=== PATIENT | female | born 1955 | race Two or more races ===

== ENCOUNTER 2024-06-25 13:07 | Emergency (ER) | payer MEDICARE, MEDICAID, SELFPAY ==
--- NOTE | ~2024-06-25 | XR_ITS ---
EXAMINATION: XR CHEST CLINICAL INFORMATION: cough x 5 days COMPARISON: None available. TECHNIQUE: 2 views of the chest were obtained. FINDINGS: Pulmonary reticular pattern. Low lung volume. Prominence of the interstitial markings in the right middle lung lobe. No pneumothorax. No pleural effusion. Cardiomediastinal silhouette is normal. Multilevel thoracic and upper lumbar spondylosis. S-shaped curvature of the thoracal lumbar spine. Osteopenia versus osteoporosis. Degenerative changes knee, clavicular joints. XR/XR chest 2V IMPRESSION: Consider an acute small airway inflammatory versus infectious disease. Electronically signed by: Geronimo Ceballos MD 06/25/2024 02:22 PM [facility]
[2024-06-25 13:57] VITALS: BP 145/70; PULSE 80; RESP 18; TEMP 36.9; O2SAT 98; BMI 29.0
--- NOTE | 2024-06-25 13:57 | ED_ITS ---
HPI - General Adult General Chief complaint: Upper Respiratory Symptoms Stated complaint: asthma Time Seen by Provider: 06/25/24 16:56 Source: patient, RN notes reviewed and old records reviewed Mode of arrival: ambulatory Limitations: no limitations History of Present Illness ED Provider: Diego [facility] narrative: Patient is a 69-year-old female with history of asthma presenting with complaint of cough since Saturday. Using inhaler without relief. Denies chest pain or palpitations. Cough nonproductive. MD complaint: cough Onset (ago): day(s) Treatments prior to arrival: none Related Data Previous Rx's ?Medication ?Instructions ?Recorded benzonatate 100 mg capsule 100 mg PO TID PRN cough #14 caps 06/25/24 prednisone 20 mg tablet 40 mg (2 x 20 mg) PO DAILY #10 tabs 06/25/24 Allergies Allergy/AdvReac Type Severity Reaction Status Date / Time aspirin [ASA] Allergy Unknown Verified 06/25/24 14:00 Review of Systems Review of Systems: As per HPI Yes all other systems are reviewed and are negative Constitutional: Constitutional: Reports as per HPI Physical Exam ED Vital Signs: Vital Signs - 24 hr 06/25/24 13:57 06/25/24 17:00 Temperature 98.4 F 98.4 F Pulse Rate 80 80 Respiratory Rate 18 18 Blood Pressure 145/70 H 145/70 H Pulse Oximetry 98 98 Oxygen Delivery Method Room Air Room Air BMI result Body Mass Index 29.0 Vital signs have been reviewed and appear to be correct. Blood pressure mildly elevated. Heart rate normal. Respiratory rate normal. Temperature normal. Oxygen saturation normal. Const General: cooperative, healthy appearing and no acute distress Orientation/consciousness: oriented to person, oriented to place, oriented to time and patient oriented x3 Limitations: no limitations HENMT Head: Yes normocephalic and Yes atraumatic Ears: external ears normal General nose exam: Normal external nose present Face and sinus: Yes face symmetric Mouth: oropharynx normal and moist mucous membranes Throat: Yes uvula midline Eyes Pupils: Equal, round and reactive pupils present Neck Neck: Yes normal visual inspection and Yes supple Resp Effort & Inspection: normal respiratory effort, able to speak in complete sentences and Actively coughing Quality: dry Auscultation: clear to auscultation bilaterally Cardio Rate: regular rate Rhythm: regular rhythm Heart sounds: S1 normal heart sound present and S2 normal heart sound present GI Palpation (GI): Soft to palpation and nontender Auscultation: normoactive bowel sounds General: Yes no CVA tenderness Back/Spine/Pelvis Back: no CVA tenderness Skin General skin exam: elasticity normal and turgor normal Neuro General: oriented to person, oriented to place, oriented to time, patient oriented x3, moves all extremities, no focal motor deficits and CN's II-XI intact bilaterally Cranial nerves: Yes Equal, round and reactive pupils present Cognition (Neuro): normal cognition Extrem General: Yes full ROM, Yes no pedal edema and Yes no calf tenderness Psych Mental Status: mental status grossly normal Affect: normal affect Thought process: Normal thought process present Course Course Course Narrative: This is a rapid medical exam performed by Deb Cortez NP: Additional HPI, ROS, PE not included below will be deferred to primary provider. Patient is a 69-year-old female with history of asthma presenting with complaint of cough since Saturday. Using inhaler without relief. Plan: viral serology, cxr Medical Decision Making Medical Decision Making [facility] Narrative: Patient is a 69-year-old female with history of asthma presenting with complaint of cough since Saturday. On exam patient is awake, A+Ox3, VS WNL, afebrile, normal neurological exam without focal deficits, physical exam findings as above. Given reported symptoms and physical exam findings, initial differential includes but is not limited to viral illness, covid, flu, rsv, asthma exacerbation. Viral serology positive for influenza. Patient updated on results and all questions answered. Discussed with patient that as this is a v iral illness, symptoms will resolve on their own with time. Advised her to ensure adequate rest, adequate fluid intake, Tylenol and ibuprofen as needed for fever or discomfort. Will send prescription for benzonatate for cough. Follow up with PCP. Return precautions discussed. Patient verbalized understanding of and agreement with plan. Differential Diagnosis Differential Diagnoses: The differential diagnosis associated with the presentation includes as per [facility] Lab Data [facility] Lab Attestation statement: I reviewed the patient's lab results. as per [facility] Labs: Lab Results 06/25/24 Range/Units 14:50 Influenza Type A (PCR) POSITIVE A (Negative) Influenza Type B (PCR) NEGATIVE (Negative) RSV RNA Qual (PCR) NEGATIVE (Negative) SARS-CoV-2 RNA (RT-PCR) NEGATIVE (Negative) External Record Review External record reviewed: Inpatient record, Office record and Outpatient record Prescription Management I considered prescription management with: Other Discharge Plan Discharge Clinical Impression: Influenza Patient Disposition: Home, Self-Care Instructions: Influenza (DC), Flu Shot (Vaccine) for Adults (ED) Additional Instructions: You were evaluated in the emergency department today for sore throat, congestion and diarrhea. Your flu test was positive. Your chest x-ray did not show evidence of pneumonia. You should isolate at home for another day and continue to wear mask or symptomatic after that. Your symptoms should resolve over time with rest and fluids. You can take 650 mg Tylenol or 600 mg ibuprofen every 6 hours as needed for fever or pain. Please follow-up with your primary care provider for any ongoing symptoms. Return to the emergency department if you develop worsening pain, fever not controlled with Tylenol and ibuprofen, chest pain, dizziness or lightheadedness, or any other concerning symptoms. Prescriptions: New benzonatate 100 mg capsule 100 mg PO TID PRN (Reason: cough) Qty: 14 0RF prednisone 20 mg tablet 40 mg PO DAILY Qty: 10 0RF Stand Alone Forms: Work/School Release Interventions: ED Discharge Assessment Last Done: 06/25/24 17:00 Discharge Date/Time: 06/25/24 17:02 Print Language: Swedish
[2024-06-25 15:38] LABS: Influenza A PCR POSITIVE (Negative); Influenza B PCR NEGATIVE (Negative); Resp Syncy Virus RNA Qual PCR NEGATIVE (Negative); SARS COV2 PCR INHOUSE NEGATIVE (Negative)
[2024-06-25 17:00] VITALS: BP 145/70; PULSE 80; RESP 18; TEMP 36.9; O2SAT 98
== END 2024-06-25 17:02 | disposition home or self-care (01) ==
PROVIDERS: Registered Nurse Emergency; Emergency Provider Emergency Medicine; PCP Family Medicine
DX: J10.1 Influenza due to other identified influenza virus with other respiratory manifestations (principal); R05.9 Cough, unspecified; Z03.818 Encounter for observation for suspected exposure to other biological agents ruled out
CPT/HCPCS: 0241U; 71046; 99282; 99283

== ENCOUNTER → 2024-06-25 14:01 | Outpatient (BNV) | payer MEDICARE, MEDICAID, SELFPAY | PROVIDERS: PCP Family Medicine; Visit Provider Radiology Diagnostic Radiology | DX: J68.9 Unspecified respiratory condition due to chemicals, gases, fumes and vapors (principal) | CPT/HCPCS: 71046 ==

== ENCOUNTER 2024-12-16 09:51 | Outpatient (REF) | payer MEDICARE, MEDICAID, SELFPAY ==
--- NOTE | ~2024-12-16 | XR_ITS ---
EXAMINATION: XR CHEST CLINICAL INFORMATION: cough, wheezing COMPARISON: June 25, 2024 TECHNIQUE: 2 views of the chest were obtained. FINDINGS: No significant abnormality is noted involving the heart, lungs, mediastinum, bony thorax or soft tissues. XR/XR chest 2V IMPRESSION: Unremarkable examination. Electronically signed by: Se Blue MD 12/16/2024 04:08 PM EDT
--- OUTSIDE RECORDS SUMMARY | 2024-12-16 10:15 | XMS_ITS | Clinical Summary ---
Author Organization [facility] Address [address] [place] [address] Care Team Providers Care Device Processing Engineer Name Role Phone Ginette Hills MD Primary Care Provider [phone] Source Comments PLEASE NOTE, if this patient is a minor, it may be UNLAWFUL to discuss sensitive information that is contained in these records (such as FAMILY PLANNING, MENTAL HEALTH or SUBSTANCE ABUSE) with the minor patient's parent or other person without the patient's specific authorization.[facility] Allergies Active Allergy Reactions Criticality Noted Date Comments Aspirin 03/31/2021 Nsaids (Non-Steroidal Anti-I nflammatory Drug) Rash High 08/07/2019 Medications capsaicin 0.025 % creamIndications:N europathic pain Apply topically 3 (three) times daily To legs as needed for nerve pain 120 g 1 2 Active acetaminophen (TYLENOL) 500 mg tabletIndications: Chronic right shoulder pain Take 2 Tablets by mouth every 6 (six) hours as needed for pain 100 Tablet 2 2 Active sodium chloride (OCEAN) 0.65 % nasal sprayIndications:R hinorrhea Place 2 Sprays into the nostril(s) as needed for congestion 60 mL 2 Active conjugated estrogens (PREMARIN) 0.625 mg/gram vaginal creamIndications:R ecurrent UTI (urinary tract infection),Atrophi c vaginitis Place 1 g vaginally every 7 (seven) days 42.5 g 3 2 Active fluticasone (FLOVENT HFA) 220 mcg/actuation inhalerIndications :Mild intermittent asthma with exacerbation (HHS-HCC) Inhale 2 Puffs into the lungs 2 (two) times daily 12 g 2 Active inhalational spacing device Use with inhaler 2 Each 1 2 Active fluticasone (FLONASE) 50 mcg/actuation nasal spray Place 2 Sprays in both nostrils once daily 16 g 1 2 Active diclofenac sodium (VOLTAREN) 1 % gelIndications:Chr onic right shoulder pain Apply topically 2 (two) times daily On hands and other painful joints 100 g 3 3 Active meclizine (ANTIVERT) 25 mg tabletIndications: Balance problem Take 1 Tablet by mouth 3 (three) times daily as needed for dizziness 40 Tablet 1 3 Active estradioL (ESTRACE) 0.01 % (0.1 mg/gram) vaginal creamIndications:R ecurrent UTI,Atrophic urethritis Place 2 g vaginally nightly at bedtime Decrease to twice weekly once symptoms improve 42.5 g 3 3 Active loratadine (CLARITIN) 10 mg tabletIndications: Mild persistent asthma without complication ([facility]) Take 1 Tablet by mouth once daily as needed for allergies 90 Tablet 3 4 Active albuterol HFA 90 mcg/actuation inhalerIndications :Mild persistent asthma without complication (HHS-HCC) Inhale 2 Puffs into the lungs every 4 (four) hours as needed for shortness of breath or wheezing 18 g 4 Active mometasone-formote rol (DULERA) 200-5 mcg/actuation inhalerIndications :Mild persistent asthma without complication (HHS-HCC) Inhale 2 Puffs into the lungs 2 (two) times daily 13 g 2 4 Active montelukast (SINGULAIR) 10 mg tabletIndications: Mild persistent asthma without complication (HHS-HCC) Take 1 Tablet by mouth nightly at bedtime 90 Tablet 1 4 Active ergocalciferol (VITAMIN D-2) 1,250 mcg (50,000 unit) capsuleIndications :Vitamin D deficiency Take 1 Capsule by mouth once a week for 90 days 12 Capsule 4 Active rosuvastatin (CRESTOR) 40 mg tabletIndications: Hyperlipidemia, unspecified hyperlipidemia type Take 1 Tablet by mouth once daily 90 Tablet 3 4 Active calcium citrate-vitamin D3 500 mg-12.5 mcg (500 unit) chewIndications:Ag e-related osteoporosis without current pathological fracture Chew and swallow 1 Tablet by mouth daily. 90 Tablet 3 4 Active Active Problems Problem Noted Date Diagnosed Date Age-related osteoporosis wit hout current pathological fracture 10/16/2023 Chronic right shoulder pain 05/16/2020 COVID-19 virus infection 11/03/2019 Overview (11/13/2019): Sx started 10/27 Tested + ER 11/01 Admitted--> d/c 10/31 O2 requirement--> weaned. Not intubated +remsidivir, + CAN-COVID study, possible biologic +abl imaging dx covid PNA +elevated inflamm markers Needs retesting for clearance Last Assessment & Plan: Graduated today from our f/u team because followed at [facility]. Has appt tomorrow with pcp Doing well, Her little rozina is staying with daughter until she is better. She is improving. I think she does meet criteria for ending isolation so will send to retesting pool [facility] has not called her yet. Discussed that they are supposed to , and to answer phone if sees they are calling. Gave her number of [facility] to call. She is anxious that she is not 100% yet and we discussed that does not have to be , to be off of isolation However does need retesting for clearance so sent to [facility] as above. Education/counselin) Reviewed with patient that if they experience any of the following, they should call 911 for immediate evaluation and inform them of their COVID positive or suspected test results: ? Worsening shortness of breath, difficulty breathing ? Persistent Chest pressure or pain ? New confusion or inability to wake-up ? Bluish or gonzalez lips or face, particularly bluish gums 2) Reviewed with patient that they are to remain in isolation from the community until they are contacted by [facility] and are cleared from isolation by [facility]. The criteria that [facility] will use is 10 days since symptom onset AND they have had 3 days without fever (without use of antipyretics) and 3 days of improving respiratory symptoms only* * Unless they meet retesting criteria, in which case they will need two negative retests >24 hours apart. Although [facility] is the only entity that can clear into community, we are able to provide clearance for work when they meet the above criteria. If they require work note for clearance, they can call their PCP office, our call our COVID follow-up team line at [phone] (7 days a week, 9AM-4PM). Their family members will also need to remain in quarantine until: - (If do not develop symptoms) at least 14 days after the COVID+ patient meets the following criteria (7 days after onset of symptoms and 72h after resolution of fever and any respiratory symptoms) - If they develop symptoms, at least 10 days after onset of symptoms and 72h after resolution of fever and improving respiratory symptoms If they have questions about other medical issues OR are calling after hours, directed patient to call their PCP. Food insecurity 08/21/2019 History of vaginal hysterectomy 03/11/2019 Overview (03/11/2019): 2016 due to prolapse Prediabetes 07/26/2017 Myalgia 11/23/2016 Female genital prolapse 10/18/2016 Decreased vision 09/09/2016 BMI 30.0-30.9,adult 09/09/2016 Vitamin D deficiency 09/09/2016 Hyperlipidemia 09/09/2016 Mild persistent asthma without complication ([facility]) 09/09/2016 Assessment & Plan (08/21/2019 5:56 PM EST): Recent asthma exacerbation - seen by PCP 08/07/2019. Given Prednisone taper - but patient taking 10mg daily. Also escalated controller inhaler. Patient seems to have post-nasal drip and cough not in respiratory distress and no wheezing on exam. -- reviewed nasal saline use -- can consider flonase if sx persisting -- continue controller and reviewed use of albuterol rescue -- no indication for additional systemic steroids -- reviewed return precautions Varicose veins of both lower extremities with pa in 09/09/2016 Routine health maintenance 09/09/2016 Asthma ([facility]) 07/20/2010 Overview (11/20/2019): Overview: Asthma Overview: Overview: Asthma Overview: Asthma Allergic rhinitis 11/07/2001 Overview (11/20/2019): Overview: Allergic rhinitis Overview: Overview: Allergic rhinitis Resolved Problems Problem Noted Date Diagnosed Date Resolved Date Nonhealing skin ulcer, limit ed to breakdown of skin ([facility]) 09/09/2016 09/20/2020 Immunizations Immunization Administration Dates Next Due Flu, Multi Dose 0.5 ML 03/31/2021,2019,03/25/2018,02/16,03/14/2015 Flu, Preservative Free 03/19/2023,05/24/2022, INFLUENZA, SEASONAL, INJECTABLE 04/04/20 14,09/04/2009,03/18/2009,12/2004 INFLUENZA, UNSPECIFIED 03/07/2010,03/18/2009,12/2004 MODERNA COVID-19 VACCINE BIV ALENT, BLUE CAP, 6M+ 05/24/2022 Moderna COVID-19 Vaccine, re d cap blue label, 12+ Primary Series 01/08/2022,05/08/2021,10/18/2020,11/202010/18/2020 PNEUMOCOCCAL POLYSACCHARIDE PPV23 (Pneumovax 23) 07/26/2017 TDAP 07/26/2017,12/01/2012 Td (adult) unspecified 03/06/2005 Td(adult),2 Lf tetanus toxoid,preservative free 03/06/2005 ZOSTER VACCINE, RECOMBINANT (SHINGRIX) 01/09/2021,08/21/2019 Family History Medical History Relation Name Comments Diabetes Brother Hypertension Brother Diabetes Maternal Uncle Diabetes Mother Hypertension Mother Other (See Comments) Mother vascual r disease Colon Cancer Other Cousin Diabetes Paternal Uncle Alcohol/Drug Abuse Son Relation Name Status Comments Brother Maternal Uncle Mother Other Paternal Uncle Son Social History Tobacco Use Types Packs/Day Years Used Date Smoking Tobacco: Never Smokeless Tobacco: Never Tobacco Cessation:Counseling Given: Not Answered Alcohol Use Standard Drinks/Week Comments No 0 (1 standard drink = 0.6 oz pur e alcohol) Social Connections Answer Date Recorded Connectedness 0 02/22/2024 Financial Resource Strain Answer Date R ecorded Financial Resource Strain 1 2023 Stress Answer Date Recorded Stress 0 02/08/2019 Physical Activity Answer Date Recorded Physical Activity 0 02/08/2019 Food Insecurity Answer Date Recorded Food 1 04/14/2024 Transportation Needs Answer Date Record ed Transportation 1 04/14/2024 Housing Stability Answer Date Recorded Housing 1 04/14/2024 Safety and Environment Answer Date Donta rded Safety 0 02/08/2019 Utilities Answer Date Recorded Utilities 2 04/14/2024 Employment Answer Date Recorded Stress 1 04/14/2024 Comments No Sex and Gender Information Value Date Recorded Sex Assigned at Female 11/23/2016 3:00 PM PDT Legal Sex Female 1:13 PM PST Gender Identity Female 11/23/2016 3:00 PM PDT Sexual Orientation Straight 01/01/2017 8: 12 AM PDT Last Filed Vital Signs Vital Sign Reading Time Taken Comments Blood Pressure 123/74 04/14/2024 10:20 AM EDT Pulse 77 04/14/2024 10:20 AM EDT Temperature 36.9 C (98.5 F) 04/14/2024 10:20 AM EDT Respiratory Rate 18 05/21/2023 2:22 PM EST Oxygen Saturation 98% 04/14/2024 10: 20 AM EDT Inhaled Oxygen Concentration - - Weight 78.8 kg (173 lb 12.8 oz) 024 10:20 AM EDT Height 158.1 cm (5' 2.24 ) 03/19/2023 3:52 PM ED T Body Mass Index 31.54 03/19/2023 3:52 PM EDT Plan of Treatment Health Maintenance Due Date Last Done Comments Tobacco Screening 1955 Medicare Annual Wellness Visit 1975 CT Colonography 2002 Flexible Sigmoidoscopy 2002 Colonoscopy 03/23/2021 03/23/2011 Colorectal Cancer Screening 09/21/2023 FIT/gFOBT 09/21/2023 09/20/2022, 0411/2022, 05/08/2021 [id number] ( season) 2024 05/24/2022, 01/08/2022, 05/08/2021, Additional history exists Diabetes Screening 03/21/2024 03/21/2023, 1 , 09/20/2020, Additional history exists Alcohol and Drug Screen 06/17/2024 04/14/20, 10/14/2023, 05/21/2023, Additional history exists Depression Annual Screen 06/17/2024 04/14/2024 Bone Density Screening 09/04/2024 09/05/2023, 2023 Lipid Screening 10/14/2024 10/15/2023, 10/2022, 03/21/2023, Additional history exists Imm-Influenza (#1) 2025 03/19/2023, 1 07/25/2021, 03/31/2021, Additional history exists Breast Cancer Screening (Mammogram) 02/24/2025 02/25/2024, 09/03/2022, 09/03/2022, Additional history exists Falls Prevention 04/14/2025 04/14/2024, 03/19/2023 Hypertension Screening (#1) 04/14/2025 Fecal DNA 09/20/2025 09/20/2022, 11/2022, 09/20/2022 Imm-DTaP/Tdap/Td (4 - Td or Tdap) 12/19/2033 12/20/2023, 07/26/2017, 12/01/2012, Additional history exists Hepatitis C Screening Completed 09/05/2016 Imm-Zoster, Recombinant Completed 01/09/2021, 08/20 Imm-Pneumococcal 50+ Completed 03/21/2023, 07/26/19 18 Procedures Procedure Name Priority Date/Time Associated Diagnosis Comments LIPIDS W RFLX TO DIRECT LDL Routine 10/15/2023 2:34 PM EDT Hypertriglyceridemi a COMPREHENSIVE METABOLIC PANEL Routine 03/21/2023 2:19 PM EDT Screening for metabolic disorder COLOGUARD Routine 09/20/2022 2:40 PM EDT Special screening for malignant neoplasms, colon HEPATITIS C AB W/RFLX HCV RNA, QT, RT PCR Routine 09/05/2016 4:34 PM EDT Screening examination for STD (sexually transmitted disease) from Last 3 Months or Most Recently Relevant to Health Maintenance Results * (ABNORMAL) LIPIDS W/RFLX DIRECT LDL ([id number]) (10/15/2023 2:34 PM EDT) CHOLESTEROL, TOTAL 158 <200 mg/dL 10/16/2023 4:16 AM EDT [facility] HDL CHOLESTEROL 63 > OR = 50 mg/dL 10/16/2023 4:16 AM EDT [facility] TRIGLYCERIDES 267(H) <150 mg/dL 10/16/2023 4:16 AM EDT [facility] LDL-CHOLESTEROL 64 mg/dL (calc) 10/16/2023 4:16 AM EDT [facility] CHOL/HDLC RATIO 2.5 <5.0 (calc) 10/16/2023 4:16 AM EDT [facility] NON-HDL CHOLESTEROL 95 <130 mg/dL (calc) 10/16/2023 4:16 AM EDT [facility] Blood Blood / Unknown 10/15/2023 2 :34 PM EDT 10/16/2023 2:36 AM EDT Narrative [facility] - 10/16/2023 4:56 AM EDT . If a non-fasting specimen was collected, consider repeat triglyceride testing on a fasting specimen if clinically indicated. Light et al. J. of Clin. Lipidol. 2015;9:129-169. . Reference range: <100 . Desirable range <100 mg/dL for primary prevention; <70 mg/dL for patients with CHD or diabetic patients with > or = 2 CHD risk factors. . LDL-C is now calculated using the Moshe-Thomas calculation, which is a validated novel method providing better accuracy than the Friedewald equation in the estimation of LDL-C. Moshe GRAY et al. BARBIE. 2013;310(19): 2671-3223 (http://education.[employer]/faq/KHL566) For patients with diabetes plus 1 major ASCVD risk factor, treating to a non-HDL-C goal of <100 mg/dL (LDL-C of <70 mg/dL) is considered a therapeutic option. us Ginette Hills MD LAB - BLOOD DRAW Final Result [facility] [address] [address], [facility] [address] [address] * CMP ([id number]) (03/21/2023 2:19 PM EDT) [facility] Signature GLUCOSE 86 65 - 99 mg/dL 03/22/2023 7:53 AM [facility] UREA NITROGEN (BUN) 18 7 - 25 mg/dL 03/22/2023 7:53 AM [facility] CREATININE (blood) 0.68 0.50 - 1.05 mg/dL 03/22/2023 7:53 AM [facility] EGFR 96 > OR = 60 mL/min/1. 73m2 03/22/2023 7:53 AM [facility] BUN/CREATININE RATIO SEE NOTE: 6 - 22 (calc) 03/22/2023 7:53 AM [facility] SODIUM 139 135 - 146 mmol/L 03/22/2023 7:53 AM [facility] POTASSIUM 4.5 3.5 - 5.3 mmol/L 03/22/2023 7:53 AM [facility] CHLORIDE 103 98 - 110 mmol/L 03/22/2023 7:53 AM [facility] CARBON DIOXIDE 28 20 - 32 mmol/L 03/22/2023 7:53 AM [facility] CALCIUM 9.1 8.6 - 10.4 mg/dL 03/22/2023 7:53 AM [facility] PROTEIN, TOTAL 6.8 6.1 - 8.1 g/dL 03/22/2023 7:53 AM [facility] ALBUMIN 4.3 3.6 - 5.1 g/dL 03/22/2023 7:53 AM [facility] GLOBULIN 2.5 1.9 - 3.7 g/dL (calc) 03/22/2023 7:53 AM [facility] ALBUMIN/GLOBULI N RATIO 1.7 1.0 - 2.5 (calc) 03/22/2023 7:53 AM [facility] BILIRUBIN, TOTAL 0.4 0.2 - 1.2 mg/dL 03/22/2023 7:53 AM [facility] ALKALINE PHOSPHATASE 79 37 - 153 U/L 03/22/2023 7:53 AM [facility] AST 18 10 - 35 U/L 03/22/2023 7:53 AM EDT [facility] ALT 14 6 - 29 U/L 03/22/2023 7:53 AM EDT [facility] Blood Blood / Unknown 03/21/2023 2 :19 PM EDT 03/22/2023 1:41 AM EDT Narrative [facility] - 03/22/2023 8:58 AM EDT . Fasting reference interval . Not Reported: BUN and Creatinine are within reference range. . us Ginette Hills MD LAB - BLOOD DRAW Final Result Performing Organization Address City/[facility]/ZIP Co de Phone Number [facility] [address] [address], [facility] [address] [address] * COLOGUARD (09/20/2022 2:40 PM EDT) Pathologist [facility] COLOGUARD DNA/OCCULT BLOOD SCREENING PRESENCE NEGATIVE Negative [facility] COL[facility]UARD DNA/OCCULT BLOOD SCREENING DESCRIPTIVE neg [employer] Stool Stool specimen / Unknown 09/20/2022 2:40 PM EDT us Ginette Hills MD LAB BODY FLUIDS AND STOOLS AMB ULATORY Final Result Performing Organization Address City/[facility]/ZIP Co de Phone Number [facility] [address] [facility] [id number] [place] [address], * HEPATITIS C AB W/RFLX HCV RNA, ([id number]) Recommended for screening (09/05/2016 4:34 PM EDT) Pathologist [facility] HEPATITIS C ANTIBODY NON-REACTI VE NON-REACT IRVING [facility] SIGNAL TO CUT-OFF 0.01 <1.00 [facility] Blood specimen (specimen) Blood / Unknown 09/05/2016 4:34 PM EDT 09/05/2016 4:35 PM EDT Narrative [facility] - 09/10/2016 12:21 PM EDT Performing Organization Information: [[id number]] : [facility], [address], [place] [address] Director: TOMI RIOJAS MD us Ginette Hills MD LAB - BLOOD DRAW Final Result [facility] [address] [address], [place] from Last 3 Months or Most Recently Relevant to Health Maintenance [place] Care Teams Device Processing Engineer Relationship Specialty Start Date End Date Ginette Hills MD [address] [place] [address] PCP - General Family Medicine, Physician 09/06/16
--- OUTSIDE RECORDS SUMMARY | 2024-12-16 10:15 | XMS_ITS | Encounter Summary ---
Author Organization [employer] [facility] Address [address] [place] [address] Care Team Providers Care Final Finisher Forging Dies Name Role Phone Rosetta Peralta MD Primary Care Provider [phone] Reason for Referral * Consultation (Routine) - Authorized Specialty Diagnoses / Procedures Referred By Mame nagel Referred To Contact Pharmacy Diagnoses Hypertension Cait Sunshine MD [address] [place] [address] Phone: tel: fax: Referral ID Status Reason Start Date Expiration Date Visits Requested Visits Authorized [id number] Authorized Continuity of Care 10/27/2024 10/27/2025 6 6 Encounter Details Date Type Department Care Team ([facility] st Contact Info) Description 10/26/2024 Orders Only [facility] [address] [place], [place] [phone] Cait Sunshine MD [address], [place] [phone] Hypertension (Primary Dx) Social History Tobacco Use Types Packs/Day Years Used Date Smoking Tobacco: Never Smokeless Tobacco: Never Alcohol Use Standard Drinks/Week Comments Never 0 (1 standard drink = 0.6 oz pur e alcohol) Alcohol Answer Date Recorded How often do you have a drink containing alcohol ? 0 07/01/2024 How many drinks containing a lcohol do you have on a typical day when you are drinking? 0 07/01/2024 How often do you have six or more drinks on one occasion? 0 07/01/2024 Depression Answer Date Recorded Patient Health Questionnaire-9 Score 4 06/30/2024 Patient Health Questionnaire-9 Score 4 06/30/2024 Last PHQ-9: Questionnaire Data Not on file 0 06/30/2024 Housing Stability Answer Date Recorded What is your housing situation today? I have reagan gaines 06/30/[address] you li ve. Do you have problems with any of the following? None of the above 06/30/2024 Food Insecurity Answer Date Recorded Within the past 12 months, y ou worried that your food would run out before you got money to buy more: Never True 06/30/2024 Within the past 12 months,th e food you bought just didn't last and you didn't have enough money to get more: Never True Transportation Answer Date Recorded In the past 12 months, has l ack of transportation kept you from medical appts, meetings, work or from getting things needed for daily living? No 06/30/2024 Intimate Partner Violence Answer Date R ecorded Within the last year, have y ou been afraid of your partner or ex-partner? 2 07/01/2024 Within the last year, have y ou been humiliated or emotionally abused in other ways by your partner or ex-partner? 2 Within the last year, have y ou been kicked, hit, slapped, or otherwise physically hurt by your partner or ex-partner? 2 07/01/2024 Within the last year, have y ou been raped or forced to have any kind of sexual activity by your partner or ex-partner? 2 07/01/2024 Utilities Answer Date Recorded In the past 12 months, has t he electric, gas, oil or water company threatened to shut off services in your home? No 06/30/2024 Depression Answer Date Recorded Patient Health Questionnaire-2 Score 1 06/30/2024 Internet Access Answer Date Recorded Internet Access Q1 Yes 06/30/2024 Internet Access Q2 Not on file 06/30/2024 Comments Unknown Sex and Gender Information Value Date Recorded Sex Assigned at Female 04/16/2022 10:28 AM EDT Legal Sex Female 10:28 AM EDT Gender Identity Female 05/21/2024 2:31 PM EST Sexual Orientation Don't know 06/29/2024 10 :14 AM EST documented as of this encounter Plan of Treatment Upcoming Encounters Date Type Department Care Team (Late st Contact Info) Description 01/08/2025 1:00 PM EDT Office Visit [facility] [address] [place] [address] Marline Aiyana, OD [address] [place] [address] 01/12/2025 1:00 PM EDT Medication Management [facility] [address] [place] [address] Jp Hernandez, IrinaD [address] [place] [address] 03/24/2025 1:00 PM EDT Office Visit [facility] [address] [place] [address] Sapphire Hernandez Scheduled Referrals Name Type Priority Associated Diagnoses Orde r Schedule Referral to Pharmacy MTM Outpatient Referral Routine Hypertension Ordered: 10/27/2024 documented as of this encounter Visit Diagnoses Diagnosis Hypertension- Primary Unspecified essential hypertension documented in this encounter Additional Health Concerns Assessment Noted Time PHQ-9 Depression Total Score: 4 06/30/19 25 10:09 AM EST documented as of this encounter Care Teams Final Finisher Forging Dies Relationship Specialty Start Date End Date Rosetta Peralta MD [address] [place] [phone] PCP - General Family Medicine 06/30/24 documented as of this encounter
== END 2024-12-16 09:52 | disposition home or self-care (01) ==
LOC: HO.HHCX 09:51
PROVIDERS: Visit Provider Emergency Medicine
DX: R05.9 Cough, unspecified (principal)
CPT/HCPCS: 71046

== ENCOUNTER → 2024-12-16 09:52 | Outpatient (BNV) | payer MEDICARE, MEDICAID, SELFPAY | PROVIDERS: Visit Provider Radiology Diagnostic Radiology | DX: R05.9 Cough, unspecified (principal) | CPT/HCPCS: 71046 ==

== ENCOUNTER 2025-01-07 08:05 | Outpatient (REF) | payer MEDICARE, MEDICAID, SELFPAY ==
--- NOTE | ~2025-01-07 | US_ITS ---
EXAMINATION: US LOWER EXTREMITY VENOUS (REFLUX EXAM), BILATERAL CLINICAL INFORMATION: Edema. Status post vena seal versus ablation. COMPARISON: None. TECHNIQUE: Color flow triplex imaging and compression Doppler was performed to evaluate both the deep and the superficial systems bilaterally. To evaluate the superficial system, the examination was performed in the upright position. Color-flow Doppler ultrasound and compression ultrasound were utilized. In addition, maneuvers were utilized to demonstrate reflux. FINDINGS: 1. DEEP VENOUS ULTRASOUND OF THE RIGHT LOWER EXTREMITY: Common Femoral Vein: Compressible, normal respiratory variation and augmented flow. Femoral Vein: Compressible, normal color flow and augmentation. Popliteal Vein: Compressible, normal augmentation. Deep Reflux: There is a 2492 ms reflux in the popliteal vein. There is no evidence of a Jha's cyst. 2. SUPERFICIAL ULTRASOUND WITH DOPPLER OF RIGHT LOWER EXTREMITY: GREAT SAPHENOUS VEIN: Saphenofemoral Junction: 0.6 cm; Reflux: 2440 ms Proximal Thigh: 0.5 cm; Reflux: 2168 ms Mid Thigh: Not seen. Distal Thigh: Not seen. At Knee: 0.3 cm; Reflux: 2336 ms Proximal Calf: 0.4 cm; Reflux: 0 ms Mid Calf: 0.3 cm; Reflux: 0 ms Distal Calf: 0.4 cm; Reflux: 0 ms DUPLICATED MEDIAL GREAT SAPHENOUS VEIN: Diameter: None imaged Reflux: NA DUPLICATED LATERAL GREAT SAPHENOUS VEIN: Diameter: 0.4 cm. Reflux: 2052 ms and 2208 ms at the junction and mid thigh, respectively. SMALL SAPHENOUS VEIN: Saphenopopliteal Junction: 1.1 cm; Reflux: 2608 ms Proximal: 0.5 cm; Reflux: 1244 ms Distal: 0.7 cm; Reflux: 2364 ms VEIN OF GIACOMINI: Size: NA Reflux: NA PERFORATORS: Location: Small saphenous vein mid segment. At the knee and proximal calf. Size: 0.2-0.5 cm. Reflux: 2284 ms at the knee. VARICOSITIES: Location: Small saphenous vein from the proximal to distal segments. Size: 0.4-0.7 cm. Reflux: 904 ms-2640 ms. 3. DEEP VENOUS ULTRASOUND OF THE LEFT LOWER EXTREMITY: Common Femoral Vein: Compressible, normal respiratory variation and augmented flow. Femoral Vein: Compressible, normal color flow and augmentation. Popliteal Vein: Compressible, normal augmentation. Deep Reflux: There is 1400 ms reflux in the femoral vein and 2036 ms reflux in the popliteal vein. There is no evidence of a Jha's cyst. 4. SUPERFICIAL ULTRASOUND WITH DOPPLER OF LEFT LOWER EXTREMITY: GREAT SAPHENOUS VEIN: Saphenofemoral Junction: 0.7 cm; Reflux: 0 ms Proximal Thigh: 0.3 cm; Reflux: 0 ms Mid Thigh: Not seen. Distal Thigh: Not seen. At Knee: 0.4 cm; Reflux: 2408 ms Proximal Calf: 0.4 cm; Reflux: 2700 ms Mid Calf: 0.4 cm; Reflux: 0 ms Distal Calf: 0.5 cm; Reflux: 2668 ms DUPLICATED MEDIAL GREAT SAPHENOUS VEIN: Diameter: None imaged Reflux: NA DUPLICATED LATERAL GREAT SAPHENOUS VEIN: Diameter: 0.2-0.3 cm. Reflux: NA SMALL SAPHENOUS VEIN: Saphenopopliteal Junction: 0.3 cm; Reflux: 0 ms Proximal: 0.4 cm; Reflux: 0 ms Distal: 0.3 cm; Reflux: 0 ms VEIN OF GIACOMINI: Size: NA Reflux: NA PERFORATORS: Location: Small saphenous vein proximal segment. At the knee, proximal and mid calf. Size: 0.1-0.3 cm. Reflux: NA VARICOSITIES: Location: Small saphenous vein proximal segment. At the knee and distal calf. Size: 0.3-0.4 cm. Reflux: 2104 ms-2632 ms. US/US venous insuf bilat IMPRESSION: Right: Venous insufficiency, great saphenous vein from the junction to the knee. Venous insufficiency accessory lateral saphenous vein at the junction and mid thigh. Venous insufficiency, small saphenous vein from the junction to the distal calf. Deep venous reflux, popliteal vein. Multiple varices with reflux throughout the small saphenous vein. Perforators with reflux at the knee. Left: Venous insufficiency, great saphenous vein from the knee to the ankle. Venous insufficiency, small saphenous vein at the distal calf. Deep venous reflux, femoral vein and popliteal vein. Multiple varices with reflux and the proximal segment small saphenous vein and from the mid to distal calf. Electronically signed by: Geronimo Ceballos MD 01/07/2025 10:05 AM EDT
--- OUTSIDE RECORDS SUMMARY | 2025-01-07 08:08 | XMS_ITS | Encounter Summary ---
Author Organization [facility] Address [address] [place] [address] Care Team Providers Care Photo Finish Photographer Name Role Phone Rosetta Peralta MD Primary Care Provider Reason for Referral * Consultation (Routine) - Authorized Specialty Diagnoses / Procedures Referred By Mame nagel Referred To Contact Pharmacy Diagnoses Hypertension Cait Sunshine MD [address] [place] [address] Phone: tel: fax: Referral ID Status Reason Start Date Expiration Date Visits Requested Visits Authorized [id number] Authorized Continuity of Care 10/27/2024 10/27/2025 6 6 Encounter Details Date Type Department Care Team ([facility] st Contact Info) Description 10/26/[address] [facility] MEDICINE [address] [place], [place] [phone] Cait Sunshine MD [address] [place], [place] [phone] Hypertension (Primary Dx) Social History Tobacco Use [...] Description 01/08/2025 1:00 PM EDT Office Visit [facility] OPTOMETRY [address] [place] [address] Marline Aiyana, OD [address] [place] [address] 01/12/2025 1:00 PM EDT Medication Management [facility] MEDICINE [address] [place] [address] Jp Hernandez, IrinaD [address] [place] [address] 03/24/2025 1:00 PM EDT Office Visit [facility] ADULT DENTAL [address] [place] [address] Sapphire Hernandez Scheduled Referrals Name Type Priority Associated Diagnoses Orde r Schedule Referral to Pharmacy MTM Outpatient Referral Routine Hypertension Ordered: 10/27/2024 documented as of this encounter Visit Diagnoses Diagnosis Hypertension- Primary Unspecified essential hypertension documented in this encounter Additional Health Concerns Assessment Noted Time PHQ-9 Depression Total Score: 4 06/30/19 25 10:09 AM EST documented as of this encounter Care Teams Photo Finish Photographer Relationship Specialty Start Date End Date Rosetta Peralta MD [address] [place] [id number] PCP - General Family Medicine 06/30/24 documented as of this encounter
--- OUTSIDE RECORDS SUMMARY | 2025-01-07 08:08 | XMS_ITS | Clinical Summary ---
Author Organization [facility] Address [address] [place] [address] Care Team Providers Care Breastfeeding Peer Counselor Name Role Phone Ginette Hills MD Primary Care Provider Source Comments PLEASE NOTE, if this patient [...] mg tabletIndications: Mild persistent asthma without complication ([facility]) Take 1 Tablet by mouth once [...] from our f/u team because followed at [facility]. Has appt tomorrow with pcp Doing well, Her little rozina is staying with daughter until she is better. She is improving. I think she does meet criteria for ending isolation so will send to retesting pool [facility] has not called her yet. Discussed that they are supposed to , and to answer phone if sees they are calling. Gave her number of [facility] to call. She is anxious that she is not 100% yet and we discussed that does not have to be , to be off of isolation However does need retesting for clearance so sent to [facility] as above. Education/counselin) Reviewed with patient that [...] the community until they are contacted by [facility] and are cleared from isolation by [facility]. The criteria that [facility] will use is 10 days since symptom onset AND they have had 3 days without fever (without use of antipyretics) and 3 days of improving respiratory symptoms only* * Unless they meet retesting criteria, in which case they will need two negative retests >24 hours apart. Although [facility] is the only entity that can clear into community, we are able to provide clearance for work when they meet the above criteria. If they require work note for clearance, they can call their PCP office, our call our COVID follow-up team line at [phone] (7 days a week, 9AM-4PM). Their family [...] Hyperlipidemia 09/09/2016 Mild persistent asthma without complication ([facility]) 09/09/2016 Assessment & Plan (08/21/2019 5:56 PM [...] in 09/09/2016 Routine health maintenance 09/09/2016 Asthma ([facility]) 07/20/2010 Overview (11/20/2019): Overview: Asthma Overview: Overview: Asthma Overview: Asthma Allergic rhinitis 11/07/2001 Overview (11/20/2019): Overview: Allergic rhinitis Overview: Overview: Allergic rhinitis Resolved Problems Problem Noted Date Diagnosed Date Resolved Date Nonhealing skin ulcer, limit ed to breakdown of skin ([facility]) 09/09/2016 09/20/2020 Immunizations Immunization Administration Dates Next Due Flu, Multi Dose 0.5 ML 03/31/2021,2019,03/25/2018,02/16,03/14/2015 Flu, Preservative Free 03/19/2023,05/24/2022, INFLUENZA, SEASONAL, INJECTABLE 04/04/20 14,09/04/2009,03/18/2009,12/2004 INFLUENZA, UNSPECIFIED 03/07/2010,03/18/2009,12/2004 MODERNA COVID-19 VACCINE BIV ALENT, BLUE CAP, 6M+ 05/24/2022 Moderna COVID-19 Vaccine, re d cap blue label, 12+ Primary Series 01/08/2022,05/08/2021,10/18/2020,11/202010/18/2020 PNEUMOCOCCAL POLYSACCHARIDE PPV23 (Pneumovax 23) 07/26/2017 TDAP 07/26/2017,12/01/2012 Td (adult) unspecified 03/06/2005 Td (adult),2 Lf tetanus toxo id (TDVAX), preservative free 03/06/2005 ZOSTER VACCINE, RECOMBINANT (SHINGRIX) 01/09/2021,08/21/2019 [...] Financial Resource Strain Answer Date R ecorded Do you have trouble paying for medicines? 1 04/14/2024 Stress Answer Date Recorded Stress 0 02/08/2019 Physical Activity Answer Date Recorded Physical Activity 0 02/08/2019 Food Insecurity Answer Date Recorded Within the past 12 months, y ou worried that your food would run out before you got money to buy more. 1 04/14/2024 Transportation Needs Answer Date Record ed Do you have trouble getting transportation to medical appointments? 1 04/14/2024 Housing Stability Answer Date Recorded What is your living situation today? 1 04/14/2024 Safety and Environment Answer Date Donta rded Safety 0 02/08/2019 Utilities Answer Date Recorded Do you have trouble paying y our heating, water or electricity bill? 2 04/14/2024 Employment Answer Date Recorded Are you currently unemployed and looking for a j ob? 1 04/14/2024 Comments No Sex and Gender [...] Colorectal Cancer Screening 09/21/2023 FIT/gFOBT 09/21/2023 09/20/2022, 04/0 11/2022, 05/08/2021 [id number] ( season) 2024 05/24/2022, 01/08/2022, 05/08/2021, Additional history exists Diabetes Screening 03/21/2024 03/21/2023, 1 , 09/20/2020, Additional history exists Alcohol and Drug Screen 06/17/2024 04/14/20 24, 10/14/2023, 05/21/2023, Additional history exists Depression Annual Screen 06/17/2024 04/14/2024 Bone Density Screening 09/04/2024 09/05/2023, 2023 Lipid Screening 10/14/2024 10/15/2023, 1010/2022, 03/21/2023, Additional history exists Imm-Influenza (#1) 2025 03/19/2023, 1 07/25/2021, 03/31/2021, Additional history exists Breast Cancer Screening (Mammogram) 02/24/2025 02/25/2024, 09/03/2022, 09/03/2022, Additional history exists Falls Prevention 04/14/2025 04/14/2024, 03/19/2023 Hypertension Screening (#1) 04/14/2025 Fecal DNA 09/20/2025 09/20/2022, 04/0 11/2022, 09/20/2022 Imm-DTaP/Tdap/Td (4 - Td or [...] Results * (ABNORMAL) LIPIDS W/RFLX DIRECT LDL ([id number]) (10/15/2023 2:34 PM EDT) CHOLESTEROL, TOTAL 158 <200 mg/dL 10/16/2023 4:16 AM EDT [facility] HDL CHOLESTEROL 63 > OR = 50 mg/dL 10/16/2023 4:16 AM EDT [facility] TRIGLYCERIDES 267(H) <150 mg/dL 10/16/2023 4:16 AM EDT [facility] LDL-CHOLESTEROL 64 mg/dL (calc) 10/16/2023 4:16 AM EDT [facility] CHOL/HDLC RATIO 2.5 <5.0 (calc) 10/16/2023 4:16 AM EDT [facility] NON-HDL CHOLESTEROL 95 <130 mg/dL (calc) 10/16/2023 4:16 AM EDT [facility] Blood Blood / Unknown 10/15/2023 2 :34 PM EDT 10/16/2023 2:36 AM EDT Narrative [facility] - 10/16/2023 4:56 AM EDT . If a non-fasting specimen was collected, consider repeat triglyceride testing on a fasting specimen if clinically indicated. Kuldeep et al. J. of Clin. Lipidol. 2015;9:129-169. . Reference range: <100 . Desirable range <100 mg/dL for primary prevention; <70 mg/dL for patients with CHD or diabetic patients with > or = 2 CHD risk factors. . LDL-C is now calculated using the Leon calculation, which is a validated novel method providing better accuracy than the Friedewald equation in the estimation of LDL-C. Moshe GRAY et al. BARBIE. 2013;310(19): 5974-0999 (http://education.AwesomeHighlighter/faq/PEH602) For patients with diabetes plus 1 major ASCVD risk factor, treating to a non-HDL-C goal of <100 mg/dL (LDL-C of <70 mg/dL) is considered a therapeutic option. us Ginette Hills MD LAB - BLOOD DRAW Final Result [facility] [address] [address], [facility] [address] [place] [address] * CMP ([id number]) (03/21/2023 2:19 PM EDT) GLUCOSE 86 65 - 99 mg/dL 03/22/2023 7:53 AM [facility] UREA NITROGEN (BUN) 18 7 - 25 mg/dL 03/22/2023 7:53 AM [facility] CREATININE (blood) 0.68 0.50 - 1.05 mg/dL 03/22/2023 7:53 AM [facility] EGFR 96 > OR = 60 mL/min/1. 73m2 03/22/2023 7:53 AM [facility] BUN/CREATININE RATIO SEE NOTE: 6 - 22 (calc) 03/22/2023 7:53 AM [facility] SODIUM 139 135 - 146 mmol/L 03/22/2023 7:53 AM [facility] POTASSIUM 4.5 3.5 - 5.3 mmol/L 03/22/2023 7:53 AM [facility] CHLORIDE 103 98 - 110 mmol/L 03/22/2023 7:53 AM [facility] CARBON DIOXIDE 28 20 - 32 mmol/L 03/22/2023 7:53 AM [facility] CALCIUM 9.1 8.6 - 10.4 mg/dL 03/22/2023 7:53 AM [facility] PROTEIN, TOTAL 6.8 6.1 - 8.1 g/dL 03/22/2023 7:53 AM [facility] ALBUMIN 4.3 3.6 - 5.1 g/dL 03/22/2023 7:53 AM [facility] GLOBULIN 2.5 1.9 - 3.7 g/dL (calc) 03/22/2023 7:53 AM [facility] ALBUMIN/GLOBULI N RATIO 1.7 1.0 - 2.5 (calc) 03/22/2023 7:53 AM EDT [facility] BILIRUBIN, TOTAL 0.4 0.2 - 1.2 mg/dL 03/22/2023 7:53 AM EDT [facility] ALKALINE PHOSPHATASE 79 37 - 153 U/L 03/22/2023 7:53 AM EDT [facility] AST 18 10 - 35 U/L 03/22/2023 7:53 AM EDT [facility] ALT 14 6 - 29 U/L 03/22/2023 7:53 AM EDT [facility] Blood Blood / Unknown 03/21/2023 2 :19 PM EDT 03/22/2023 1:41 AM EDT Narrative [facility] - 03/22/2023 8:58 AM EDT . Fasting reference interval . Not Reported: BUN and Creatinine are within reference range. . us Ginette Hills MD LAB - BLOOD DRAW Final Result [facility] [address] [address], [facility] [address] * COLOGUARD (09/20/2022 2:40 PM EDT) [facility] COLOGUARD DNA/OCCULT BLOOD SCREENING PRESENCE NEGATIVE Negative [facility] COLOGUARD DNA/OCCULT BLOOD SCREENING DESCRIPTIVE neg Fix[facility] Stool Stool specimen / Unknown 09/20/2022 2:40 PM EDT us Ginette Hills MD LAB BODY FLUIDS AND STOOLS AMB ULATORY Final Result [facility] [address] [facility] [id number] [place] [address], * HEPATITIS C AB W/RFLX HCV RNA, ([id number]) Recommended for screening (09/05/2016 4:34 PM EDT) [facility] HEPATITIS C ANTIBODY NON-REACTI VE NON-REACT IRVING [facility] SIGNAL TO CUT-OFF 0.01 <1.00 [facility] Blood specimen (specimen) Blood / Unknown 09/05/2016 4:34 PM EDT 09/05/2016 4:35 PM EDT Narrative [facility] - 09/10/2016 12:21 PM EDT Performing Organization Information: [[id number]] : [facility], [address], [place] [address] Director: TOMI RIOJAS MD us Ginette Hills MD LAB - BLOOD DRAW Final Result [facility] [address] [address], from Last 3 Months or Most Recently Relevant to Health Maintenance Insurance [place] - [place] Care Teams Breastfeeding Peer Counselor Relationship Specialty Start Date End Date Ginette Hills MD [address] [place] [phone] PCP - General Family Medicine, Physician 09/06/16
== END 2025-01-07 08:06 | disposition home or self-care (01) ==
LOC: HO.US 08:05
PROVIDERS: PCP General Practice; Visit Provider General Practice
DX: R60.0 Localized edema (principal)
CPT/HCPCS: 93970

== ENCOUNTER → 2025-01-07 08:10 | Outpatient (BNV) | payer MEDICARE, MEDICAID, SELFPAY | PROVIDERS: PCP General Practice; Visit Provider Radiology Diagnostic Radiology | DX: R60.0 Localized edema (principal) | CPT/HCPCS: 93970 ==

== ENCOUNTER 2025-04-21 12:13 | Outpatient (REF) | payer MEDICARE, MEDICAID, SELFPAY ==
--- OUTSIDE RECORDS SUMMARY | 2025-04-20 13:15 | XMS_ITS | Encounter Summary ---
Author Organization [employer] Address [address] [place] [address] [address] [place] [address] Care Team Providers Care Registered Nurse Fetal Name Role Phone Hollie Garcia MD Primary Care Provide r Reason for Referral * Consultation (Routine) - Pending Review Specialty Diagnoses / Procedures Referred By Contac t Referred To Contact Behavioral Health Diagnoses Current mild episode of major depressive disorder without prior episode (CMS/HCC) Procedures Referral to Behavioral Health Hollie Garcia MD [address] [place] [address] Phone: tel: fax: Referral ID Status Reason Start Date Expiration Date Visits Requested Visits Authorized [id number] Pending Review Specialty Services Required 04/20/2025 10/19/2026 1 1 * Consultation (Routine) - Closed Specialty Diagnoses / Procedures Referred By Mame t Referred To Contact Physical Therapy Diagnoses Primary osteoarthritis of both knees Hollie Garcia MD [address] [place] [address] Phone: tel: fax: [facility] [address] [place] [address] Phone: tel: fax: Referral ID Status Reason Start Date Expiration Date V isits Requested Visits Authorized [id number] Closed Specialty Services Required 04/20/2025 04/20/2026 1 1 * Consultation (Routine) - Closed Specialty Diagnoses / Procedures Referred By Contac t Referred To Contact Physical Therapy Diagnoses Chronic right shoulder pain Hollie Garcia MD [address] [place] [address] Phone: tel: fax: [facility] [address], [place] Phone: tel: fax: Referral ID Status Reason Start Date Expiration Date V isits Requested Visits Authorized [id number] Closed Specialty Services Required 04/20/2025 04/20/2026 1 1 * Imaging (Routine) - Authorized Specialty Diagnoses / Procedures Referred By Mame Referred To Contact Cardiology Diagnoses Pain in both lower extremities Other specified symptoms and signs involving the circulatory and respiratory systems Procedures Vascular US lower extremity arterial duplex bilateral with LEILANI Hollie Garcia MD [address] [place], [place] Phone: tel: fax: [address] Phone: tel: fax: Referral ID Status Reason Start Date Expiration Date Visits Requested Visits Authorized [id number] Authorized Perform Procedure 04/20/2025 04/20/2026 1 1 * Consultation (Routine) - Authorized Specialty Diagnoses / Procedures Referred By [facility] Referred To Contact Vascular Surgery Diagnoses Varicose veins of both lower extremities with pain Hollie Garcia MD [address], [place] Phone: tel: fax: Colin Lau MD [address] [place], [place] Phone: tel: fax: Referral ID Status Reason Start Date Expiration Date Visits Requested Visits Authorized [id number] Authorized Specialty Services Required 04/20/2025 04/20/2026 1 1 Encounter Details Date Type Department Care Team (Latest Contact Info) Description 04/20/2025 1:15 PM EST Office Visit [facility] [address] [place] [address] Hollie Garcia MD [address], [place] [phone] Mixed hyperlipidemia (Primary Dx); Varicose veins of both lower extremities with pain; Pain in both lower extremities; Other specified symptoms and signs involving the circulatory and respiratory systems; Moderate persistent asthma with exacerbation; Encounter for screening for diabetes mellitus; Age-related osteoporosis without current pathological fracture; Chronic right shoulder pain; Primary osteoarthritis of both knees; Encounter for immunization; Current mild episode of major depressive disorder without prior episode ([facility]) Social History Tobacco Use Types Packs/Day Years [...] Answer Date Recorded Patient Health Questionnaire-9 Score 10 04/20/2025 Patient Health Questionnaire-9 Score 10 04/20/2025 Last PHQ-9: Questionnaire Data Not on file 1 06/20/2024 Housing Stability Answer Date Recorded What is your housing situation today? I have reagan eder 06/30/[address] you li [...] Answer Date Recorded Patient Health Questionnaire-2 Score 3 04/20/2025 Internet Access Answer Date Recorded Internet Access Q1 Yes 06/30/2024 Internet Access Q2 Not on file 06/30/2024 Comments Unknown Sex and Gender Information Value Date Recorded Sex Assigned at Female 04/16/2022 10:28 AM EDT Legal Sex Female 10:28 AM EDT Gender Identity Female 05/21/2024 2:31 PM EST Sexual Orientation Don't know 06/29/2024 10 :14 AM EST documented as of this encounter Last Filed Vital Signs Vital Sign Reading Time Taken Comments Blood Pressure 118/76 04/20/2025 1:21 PM EST Pulse 74 04/20/2025 1:21 PM EST Temperature 35.6 C (96 F) 04/20/2025 1:21 PM EST Respiratory Rate 17 04/20/2025 1:21 PM EST Oxygen Saturation 96% 04/20/2025 1:21 PM EST Inhaled Oxygen Concentration - - Weight 78.1 kg (172 lb 3.2 oz) 04/20/2025 1:21 P M EST Height 162.6 cm (5' 4 ) 04/20/2025 1:21 PM EST Body Mass Index 29.56 04/20/2025 1:21 PM EST documented in this encounter Functional Status * Over the past 2 weeks, how often have you been bothered by any of the following problems? Question Answer Date of Assessment Author Patient Health Questionnaire-2 Score 3 09/2024 2:09 PM EST Yue Hyde [place] * Little interest or pleasure in doing things Answer Date of Assessment Author More than half the days 04/20/2025 2:09 PM EST Yue Rice [place] * Feeling down, depressed, or hopeless Answer Date of Assessment Author Several days 04/20/2025 2:09 PM EST Tree Hyde ra, [place] * Trouble falling or staying asleep, or sleeping too much Answer Date of Assessment Author More than half the days 04/20/2025 2:09 PM EST Yue Rice [place] * Feeling tired or having little energy Answer Date of Assessment Author More than half the days 04/20/2025 2:09 PM EST Yue Rice [place] * Poor appetite or overeating Answer Date of Assessment Author Not at all 04/20/2025 2:09 PM Tree Gonzalez ra, [place] * Feeling bad about yourself - or that you are a failure or have let yourself or your family down Answer Date of Assessment Author Not at all 04/20/2025 2:09 PM Tree Gonzalez ra, [place] * Trouble concentrating on things, such as reading the newspaper or watching television Answer Date of Assessment Author Several days 04/20/2025 2:09 PM Tree Gonzalez ra, [place] * Moving or speaking so slowly that other people could have noticed? Or the opposite - being so fidgety or restless that you have been moving around a lot more than usual. Answer Date of Assessment Author More than half the days 04/20/2025 2:09 PM EST Yue Rice [place] * Thoughts that you would be better off or hurting yourself in some way Answer Date of Assessment Author Not at all 04/20/2025 2:09 PM Tree Gonzalez ra, [place] * Patient Health Questionnaire-9 Score Answer Date of Assessment Author 10 04/20/2025 2:09 PM Tree Gonzalez ra, [place] * How difficult have these problems made it for you to do your work, take care of things at home, or get along with other people? Answer Date of Assessment Author Somewhat difficult 04/20/2025 2:09 PM Yue Gonzalez [place] * Over the last 2 weeks, how often have you been bothered by any of the following problems? Question Answer Date of Assessment Author Feeling nervous, anxious, or on edge 1 09/2024 2:09 PM Yue Gonzalez [place] Not being able to stop or co ntrol worrying 1 04/20/2025 2:09 PM Yue Gonzalez [place] Worrying too much about diff erent things 1 04/20/2025 2:09 PM Yue Gonzalez [place] Trouble relaxing 1 04/20/2025 2:09 PM Yue Alcaraz [place] Being so restless that it is hard to sit still 1 04/20/2025 2:09 PM Yue Gonzalez [place] Becoming easily annoyed or irritable 0 09/2024 2:09 PM Yue Gonzlaez [place] Feeling afraid as if somethi ng awful might happen 0 04/20/2025 2:09 PM Yue Gonzalez [place] SAMMIE-7 Total Score 5 04/20/2025 2:09 PM Yue Gonzalez [place] documented as of this encounter Progress Notes * Hollie Rodriguez MD - 04/20/2025 1:15 PM EST SUBJECTIVE: Dolly Sanchez is a 70 y.o. year old female who presents for Transfer appointment . Occupation:retired Lives with:alone - EtOH denies - smoking cigarettes denies - recreational drug use denies Diet:regular Exercise:sedentary Dolly Sanchez, 70 years Chronic Venous Insufficiency and Varicose Veins - History of varicose vein surgery, with recurrence of varicosities above and below previous operative sites - Reports pressure sensation, pain, and heaviness in both legs, worsened with prolonged sitting or standing - Experiences leg cramps, tingling, and sensitivity, especially above the right knee - Uses compression stockings, but notes they have stretched out over time - Prior venous ultrasound performed; no information provided regarding results or follow-up - No vascular specialist appointment received after ultrasound - Family history of severe venous disease with complications (mother required bilateral leg amputation after chronic ulcers and infection) - Takes acetaminophen for leg pain as needed to enable exercise - Elevates legs to relieve cramps and discomfort Osteoporosis - Diagnosed with osteoporosis following bone density testing approximately 2 months prior to movingto current location - Reports bone pain in arms, elbows, and loss of muscle mass - History of right shoulder osteoarthritis and pain, with prior physical therapy and persistent symptoms - Taking calcium supplements; previously prescribed medications for osteoporosis in [place], but uncertain about current regimen Right Shoulder Pain - History of right shoulder pain and osteoarthritis, with prior physical therapy in 2020 - Reports difficulty lifting arm, pain radiating from shoulder to elbow, and inability to sleep on affected side - Symptoms worsened with activity and after patient transition specialist Right Knee Pain and Instability - History of right knee pain and instability, with episodes of giving way - Prior referral for physical therapy, but unable to attend due to language barrier - History of two falls in [place], resulting in facial injury Asthma - History of asthma, with exacerbation during ID-19 infection - Reports intermittent episodes of severe shortness of breath - Uses nebulizer and inhaler as needed; notes difficulty with inhaler due to missing part Hyperlipidemia - Longstanding history of high cholesterol, taking fenofibrate and atorvastatin - Expresses concern about cholesterol levels and requests annual monitoring Prediabetes - Previously identified as prediabetic; no medication prescribed - Family history of diabetes (multiple close relatives affected, including brother) - Requests annual diabetes screening Social History Social History Narrative Not on file Problem List[1] Closed fracture of right orbital floor, sequela (CMS/HCC) Actinic keratosis Age-related osteoporosis without current pathological fracture Allergic rhinitis Chronic right shoulder pain Closed fracture of nasal bone with routine healing Cyst of Bartholin's gland duct Female genital prolapse History of vaginal hysterectomy Hyperlipidemia Mild persistent asthma without complication Chondromalacia Osteoarthritis of knee Thoracic back pain Varicose veins of lower extremity Vitamin D deficiency Dental abscess Localized gingival recession, severe Moderate persistent asthma with exacerbation Varicose veins of both lower extremities with pain Pain in both lower extremities Current mild episode of major depressive disorder without prior episode (CMS/HCC) Family History[2] Review of Systems Constitutional: Negative. HENT: Negative. Respiratory: Negative. Cardiovascular: Positive for leg swelling. Negative for chest pain and palpitations. Musculoskeletal: Positive for arthralgias and myalgias. OBJECTIVE: Vitals: 11/04/25 1321 BP: 118/76 BP Location: Left arm Patient Position: Sitting BP Cuff Size: Large adult Pulse: 74 Resp: 17 Temp: 96 ??F (35.6 ??C) TempSrc: Temporal SpO2: 96% Weight: 172 lb 3.2 oz (78.1 kg) Height: 5' 4 (1.626 m) Physical Exam Follow Up: No follow-ups on file. Medications Ordered Prior to Encounter[3] Problem List Items Addressed This Visit Varicose veins of both lower extremities with pain Relevant Orders Referral to Vascular Surgery Pain in both lower extremities Relevant Medications alendronate (Fosamax) 70 MG tablet Other Relevant Orders Vascular US lower extremity arterial duplex bilateral with LEILANI Hyperlipidemia - Primary Relevant Orders CBC auto differential Comprehensive Metabolic Panel Hemoglobin A1c Hepatitis C Antibody with Reflex to HCV, RNA, Quantitative, Real-Time PCR Lipid Panel, Standard Vitamin D, 25-Hydroxy, Total, Immunoassay TSH with Reflex to Free T4 Moderate persistent asthma with exacerbation Age-related osteoporosis without current pathological fracture Relevant Medications alendronate (Fosamax) 70 MG tablet Other Relevant Orders Vitamin D, 25-Hydroxy, Total, Immunoassay Chronic right shoulder pain Relevant Medications alendronate (Fosamax) 70 MG tablet Other Relevant Orders XR Shoulder 2+ Views Right Referral to Physical Therapy Osteoarthritis of knee Relevant Medications alendronate (Fosamax) 70 MG tablet Other Relevant Orders Referral to Physical Therapy Current mild episode of major depressive disorder without prior episode (CMS/HCC) Relevant Orders Referral to Behavioral Health Other Visit Diagnoses Other specified symptoms and signs involving the circulatory and respiratory systems Relevant Orders Vascular US lower extremity arterial duplex bilateral with LEILANI Encounter for screening for diabetes mellitus Relevant Orders Hemoglobin A1c Encounter for immunization Relevant Orders FLU VACCINE TRIVALENT HIGH DOSE [id number] (Fluzone) 65 yrs + (Completed) Varicose veins of both lower extremities with pain: - Venous insufficiency in both lower extremities confirmed by ultrasound. Recurrent varicosities and pain following prior surgical intervention. - Prescribed new compression stockings. Referred to vascular specialist for further evaluation and management. Ordered arterial circulation study of the lower extremities. Pain in both lower extremities: - Pain attributed to venous insufficiency and varicose veins. Associated with cramping, pressure, and paresthesia. - Recommended use of Tylenol for pain control. Referred to vascular specialist. Ordered physical therapy for both knees. Other specified symptoms and signs involving the circulatory and respiratory systems: - Reports intermittent paresthesia and sensitivity in lower extremities, likely secondary to venousinsufficiency. - Ordered arterial circulation study of the lower extremities. Prescribed menthol cream for symptomatic relief. Mixed hyperlipidemia: - Mixed hyperlipidemia managed with fenofibrate and atorvastatin. Patient expresses concern regarding cholesterol levels. - Ordered fasting blood tests to monitor lipid profile. Moderate persistent asthma with exacerbation: - Asthma with intermittent exacerbations, including episodes of dyspnea requiring nebulizer therapy. - Provided replacement mouthpiece for nebulizer. Confirmed availability of asthma medications at home. No new prescriptions at this time. Encounter for screening for diabetes mellitus: - Pre-diabetes reported, no current pharmacologic treatment. - Ordered fasting blood tests for diabetes screening. Age-related osteoporosis without current pathological fracture: - Osteoporosis confirmed by prior bone density study. Reports bone pain and decreased muscle mass. - Prescribed weekly bisphosphonate therapy. Advised to take medication with a large glass of water,remain upright for at least one hour post-dose. Continue calcium and vitamin D supplementation. - Risks and side effects: Discussed risk of reflux and esophageal irritation with bisphosphonate therapy. Chronic right shoulder pain: - Chronic right shoulder pain with history of degenerative changes and functional limitation. - Ordered physical therapy for right shoulder. Will consider imaging if symptoms persist. Primary osteoarthritis of both knees: - Osteoarthritis of both knees with instability and history of falls. - Ordered physical therapy for both knees. Encounter for immunization: - Annual influenza vaccination requested. - Administered influenza vaccine. This note was drafted using [employer] (AI) technology. The patient/patient's guardian has been informed and has consented to the use of this technology: Yes [1] Patient Active Problem List Diagnosis Closed fracture of right orbital floor, sequela (CMS/HCC) Actinic keratosis Age-related osteoporosis without current pathological fracture Allergic rhinitis Chronic right shoulder pain Closed fracture of nasal bone with routine healing Cyst of Bartholin's gland duct Female genital prolapse History of vaginal hysterectomy Hyperlipidemia Mild persistent asthma without complication Chondromalacia Osteoarthritis of knee Thoracic back pain Varicose veins of lower extremity Vitamin D deficiency Dental abscess Localized gingival recession, severe Moderate persistent asthma with exacerbation Varicose veins of both lower extremities with pain Pain in both lower extremities Current mild episode of major depressive disorder without prior episode (CMS/HCC) [2] No family history on file. [3] Current Outpatient Medications on File Prior to Visit Medication Sig Dispense Refill acetaminophen (Tylenol) 500 MG tablet Take 1 tablet by mouth Every 4-6 hours as needed for mild pain or headaches. albuterol (2.5 MG/3ML) 0.083% nebulizer solution Take 3 mL (2.5 mg) by nebulization every 6 (six) hours if needed for wheezing or shortness of breath. 75 mL 1 albuterol 108 (90 Base) MCG/ACT inhaler Inhale 2 puffs every 4 (four) hours if needed for wheezing or shortness of breath. 18 g 11 azithromycin (Zithromax Z-Tobi) 250 MG tablet Take 2 tablets once on day 1, then 1 tablet 1x/day for4 days. 6 tablet 0 Blood Pressure Monitoring (Blood Pressure Cuff) misc 1 each Once per day. 1 each 0 Calcium 500-2.5 MG-MCG chewable tablet Chew 1 tablet Once per day. 90 tablet 3 Diclofenac Sodium 1 % gel Apply topically 2 times daily. estradiol (Estrace) 0.1 MG/GM vaginal cream Insert 1 g into the vagina at bedtime. 42.5 g 3 fenofibrate (Tricor) 54 MG tablet Take 1 tablet (54 mg) by mouth Once per day. 90 tablet 3 loratadine (Claritin) 10 MG tablet Take 1 tablet (10 mg) by mouth Once per day. 90 tablet 3 meclizine (Antivert) 25 MG tablet TAKE 1 TABLET BY MOUTH THREE TIMES DAILY IN THE MORNING, AT NOON,AND AT BEDTIME NEEDED FOR DIZZINESS FOR UP TO 10 DAYS montelukast (Singulair) 10 MG tablet Take 1 tablet (10 mg) by mouth at bedtime. 90 tablet 3 Nebulizer misc 1 kit Every 4-6 hours as needed (for shortness of breath/wheezing). rosuvastatin (Crestor) 40 MG tablet Take 1 tablet (40 mg) by mouth Once per day. 90 tablet 3 Spacer/Aero-Holding Chambers (OptiChamber Tia) misc 1 each every 4 (four) hours if needed (asthma). 1 each 0 No current facility-administered medications on file prior to visit. documented in this encounter Plan of Treatment Upcoming Encounters Date Type Department Care Team (Late st Contact Info) Description 06/08/2025 1:45 PM EST Telemedicine [address] [phone] Hollie Garcia MD [address] [place] [address] 07/12/2025 1:00 PM EST Office Visit [facility] [address] [place] [address] Aiyana Horan, OD [address] [place] [address] 09/23/2025 2:15 PM EDT Office Visit [facility] [address] [place] [address] Jessie, Dolly [address] [place] [address] Scheduled Orders Name Type Priority Associated Diagnoses Orde r Schedule CBC auto differential Lab Routine Mixed hyperlipidemia Expected: 04/20/2025 (Approximate), Expires: 04/20/2026 Comprehensive Metabolic Panel Lab Routine Mixed hyperlipidemia Expected: 04/20/2025 (Approximate), Expires: 04/20/2026 Hemoglobin A1c Lab Routine Mixed hyperlipidemia Encounter for screening for diabetes mellitus Expected: 04/20/2025 (Approximate), Expires: 04/20/2026 Hepatitis C Antibody with Reflex to HCV, RNA, Quantitative, Real-Time PCR Lab Routine Mixed hyperlipidemia Expected: 04/20/2025, Expires: 04/20/2026 Lipid Panel, Standard Lab Routine Mixed hyperlipidemia Expected: 04/20/2025 (Approximate), Expires: 04/20/2026 Vitamin D, 25-Hydroxy, Total, Immunoassay Lab Routine Mixed hyperlipidemia Age-related osteoporosis without current pathological fracture Expected: 04/20/2025 (Approximate), Expires: 04/20/2026 TSH with Reflex to Free T4 Lab Routine Mixed hyperlipidemia Expected: 04/20/2025 (Approximate), Expires: 04/20/2026 XR Shoulder 2+ Views Right Imaging Routine Chronic right shoulder pain Expected: 04/20/2025, Expires: 04/20/2026 Scheduled Referrals Name Type Priority Associated Diagnoses Orde r Schedule Referral to Vascular Surgery Outpatient Referral Routine Varicose veins of both lower extremities with pain Expected: 04/20/2025 (Approximate), Expires: 04/20/2026 Referral to Physical Therapy Outpatient Referral Routine Chronic right shoulder pain Expected: 04/20/2025 (Approximate), Expires: 04/20/2026 Referral to Physical Therapy Outpatient Referral Routine Primary osteoarthritis of both knees Expected: 04/20/2025 (Approximate), Expires: 04/20/2026 documented as of this encounter Visit Diagnoses Diagnosis Mixed hyperlipidemia- Primary Varicose veins of both lower extremities with pain Pain in both lower extremities Other specified symptoms and signs involving the circulatory and respiratory systems Moderate persistent asthma with exacerbation Unspecified asthma, with exacerbation Encounter for screening for diabetes mellitus Age-related osteoporosis without current pathological fracture Chronic right shoulder pain Pain in joint, shoulder region Primary osteoarthritis of both knees Encounter for immunization Current mild episode of major depressive disorder without prior episode (CMS/HCC) documented in this encounter Additional Health Concerns Assessment Noted Time PHQ-9 Depression Total Score: 10 025 2:09 PM EST documented as of this encounter Care Teams Registered Nurse Fetal Relationship Specialty Start Date End Date Hollie Garcia MD [address] [place] [id number] PCP - General Internal Medicine 03/17/25 documented as of this encounter
--- NOTE | ~2025-04-21 | XR_ITS ---
EXAMINATION: XR SHOULDER, RIGHT CLINICAL INFORMATION: pain COMPARISON: None available. TECHNIQUE: AP external rotation, Grashey, scapular Y, and axillary views of the right shoulder. FINDINGS: Bone mineralization is decreased. Moderate acromioclavicular arthritis. No visible acute fracture, dislocation or suspicious bony lesion. No significant glenohumeral joint space narrowing. No abnormal soft tissue calcification. XR/XR shoulder RT min 2V IMPRESSION: Moderate acromioclavicular arthritis Electronically signed by: Brandon Severino MD 04/22/2025 07:26 AM EST
--- OUTSIDE RECORDS SUMMARY | 2025-04-21 14:55 | XMS_ITS | Encounter Summary ---
Author Organization [employer] Address [address] [facility] [address] [place] [address] Care Team Providers Care Tier Lift Truck Operator Name Role Phone Hollie Garcia MD Primary Care Provide r Reason for Referral * Consultation (Routine) - Authorized Specialty Diagnoses / Procedures Referred By Mame nagel Referred To Contact Pharmacy Diagnoses Hypertension Cait Sunshine MD [address] [place] [address] Phone: tel: fax: Referral ID Status Reason Start Date Expiration Date Visits Requested Visits Authorized [id number] Authorized Continuity of Care 10/27/2024 10/27/2025 6 6 Encounter Details Date Type Department Care Team ([facility] Contact Info) Description 10/26/2024 Orders Only [facility] [address] [place], [place] [phone] Cait Sunshine MD [address] [place], [place] [phone] Hypertension (Primary Dx) Social History Tobacco Use [...] Info) Description 06/08/2025 1:45 PM EST Telemedicine [facility] [address] [place] [address] Hollie Garcia MD [address] [place] [address] 07/12/2025 1:00 PM EST Office Visit [facility] [address] [place] [address] Tarka, Aiyana, OD [address] [place] [address] 09/23/2025 2:15 PM EDT Office Visit [facility] [address] [place] [address] Dolly Roman [address] [place] [address] Scheduled Referrals Name Type Priority Associated Diagnoses Orde r Schedule Referral to Pharmacy MTM Outpatient Referral Routine Hypertension Ordered: 10/27/2024 documented as of this encounter Visit Diagnoses Diagnosis Hypertension- Primary Unspecified essential hypertension documented in this encounter Additional Health Concerns Assessment Noted Time PHQ-9 Depression Total Score: 4 06/30/19 10:09 AM EST documented as of this encounter Care Teams Tier Lift Truck Operator Relationship Specialty Start Date End Date Hollie Garcia MD [address] [place] [address] PCP - General Internal Medicine 03/17/25 documented as of this encounter
--- OUTSIDE RECORDS SUMMARY | 2025-04-21 14:55 | XMS_ITS | Encounter Summary ---
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); Swelling of both lower extremities Social History Tobacco Use Types Packs/Day Years [...] the past 12 months, has t he [employer], gas, oil or water company threatened to [...] Info) Description 06/08/2025 1:45 PM EST Telemedicine [facility] [address] [place], [place] [phone] Hollie Garcia MD [address] [place] [address] 07/12/2025 1:00 PM EST Office Visit [facility] OPTOMETRY [address] [place], [place] [phone] Aiyana Horan, OD [address] [place] [address] 09/23/2025 2:15 PM EDT Office Visit [facility] ADULT DENTAL [address] [place] [address] Dolly Roman [address] [place] [address] documented as of this encounter Procedures Procedure Name Priority Date/Time Associated Diagnosis Comments [facility] US LOWER EXTREMITY VENOUS INSUFFICIENCY BILATERAL Urgent 01/07/2025 8:46 AM EDT documented in this encounter Results * [facility] US Lower Extremity Venous Insufficiency Bilateral (01/07/2025 8:46 AM EDT) 01/07/2025 8:46 AM EDT Narrative [facility] - 01/07/2025 10:08 AM EDT [facility] [address] [place] [address] Ultrasound Report Signed Patient: Dolly Sanchez MR#: [id number] 71 : 1955 Acct:[id number] Age/Sex: 69 / F ADM Date: 01/07/25 Loc: HO.US Attending Dr: Rosetta Peralta MD Ordering Physician: Rosetta Peralta Date of Service: 01/07/25 Procedure(s): US venous insuf bilat Accession Number(s): [id number] cc: Rosetta Peralta EXAMINATION: US LOWER EXTREMITY VENOUS (REFLUX EXAM), BILATERAL CLINICAL INFORMATION: Edema. Status post vena seal versus ablation. COMPARISON: None. TECHNIQUE: Color flow triplex imaging and compression Doppler was performed to evaluate both the deep and the superficial systems bilaterally. To evaluate the superficial system, the examination was performed in the upright position. Color-flow Doppler ultrasound and compression ultrasound were utilized. In addition, maneuvers were utilized to demonstrate reflux. FINDINGS: 1. DEEP VENOUS ULTRASOUND OF THE RIGHT LOWER EXTREMITY: Common Femoral Vein: Compressible, normal respiratory variation and augmented flow. Femoral Vein: Compressible, normal color flow and augmentation. Popliteal Vein: Compressible, normal augmentation. Deep Reflux: There is a 2492 ms reflux in the popliteal vein. There is no evidence of a Jha's cyst. 2. SUPERFICIAL ULTRASOUND WITH DOPPLER OF RIGHT LOWER EXTREMITY: GREAT SAPHENOUS VEIN: Saphenofemoral Junction: 0.6 cm; Reflux: 2440 ms Proximal Thigh: 0.5 cm; Reflux: 2168 ms Mid Thigh: Not seen. Distal Thigh: Not seen. At Knee: 0.3 cm; Reflux: 2336 ms Proximal Calf: 0.4 cm; Reflux: 0 ms Mid Calf: 0.3 cm; Reflux: 0 ms Distal Calf: 0.4 cm; Reflux: 0 ms DUPLICATED MEDIAL GREAT SAPHENOUS VEIN: Diameter: None imaged Reflux: NA DUPLICATED LATERAL GREAT SAPHENOUS VEIN: Diameter: 0.4 cm. Reflux: 2052 ms and 2208 ms at the junction and mid thigh, respectively. SMALL SAPHENOUS VEIN: Saphenopopliteal Junction: 1.1 cm; Reflux: 2608 ms Proximal: 0.5 cm; Reflux: 1244 ms Distal: 0.7 cm; Reflux: 2364 ms VEIN OF GIACOMINI: Size: NA Reflux: NA PERFORATORS: Location: Small saphenous vein mid segment. At the knee and proximal calf. Size: 0.2-0.5 cm. Reflux: 2284 ms at the knee. VARICOSITIES: Location: Small saphenous vein from the proximal to distal segments. Size: 0.4-0.7 cm. Reflux: 904 ms-2640 ms. 3. DEEP VENOUS ULTRASOUND OF THE LEFT LOWER EXTREMITY: Common Femoral Vein: Compressible, normal respiratory variation and augmented flow. Femoral Vein: Compressible, normal color flow and augmentation. Popliteal Vein: Compressible, normal augmentation. Deep Reflux: There is 1400 ms reflux in the femoral vein and 2036 ms reflux in the popliteal vein. There is no evidence of a Jha's cyst. 4. SUPERFICIAL ULTRASOUND WITH DOPPLER OF LEFT LOWER EXTREMITY: GREAT SAPHENOUS VEIN: Saphenofemoral Junction: 0.7 cm; Reflux: 0 ms Proximal Thigh: 0.3 cm; Reflux: 0 ms Mid Thigh: Not seen. Distal Thigh: Not seen. At Knee: 0.4 cm; Reflux: 2408 ms Proximal Calf: 0.4 cm; Reflux: 2700 ms Mid Calf: 0.4 cm; Reflux: 0 ms Distal Calf: 0.5 cm; Reflux: 2668 ms DUPLICATED MEDIAL GREAT SAPHENOUS VEIN: Diameter: None imaged Reflux: NA DUPLICATED LATERAL GREAT SAPHENOUS VEIN: Diameter: 0.2-0.3 cm. Reflux: NA SMALL SAPHENOUS VEIN: Saphenopopliteal Junction: 0.3 cm; Reflux: 0 ms Proximal: 0.4 cm; Reflux: 0 ms Distal: 0.3 cm; Reflux: 0 ms VEIN OF GIACOMINI: Size: NA Reflux: NA PERFORATORS: Location: Small saphenous vein proximal segment. At the knee, proximal and mid calf. Size: 0.1-0.3 cm. Reflux: NA VARICOSITIES: Location: Small saphenous vein proximal segment. At the knee and distal calf. Size: 0.3-0.4 cm. Reflux: 2104 ms-2632 ms. US/US venous insuf bilat IMPRESSION: Right: Venous insufficiency, great saphenous vein from the junction to the knee. Venous insufficiency accessory lateral saphenous vein at the junction and mid thigh. Venous insufficiency, small saphenous vein from the junction to the distal calf. Deep venous reflux, popliteal vein. Multiple varices with reflux throughout the small saphenous vein. Perforators with reflux at the knee. Left: Venous insufficiency, great saphenous vein from the knee to the ankle. Venous insufficiency, small saphenous vein at the distal calf. Deep venous reflux, femoral vein and popliteal vein. Multiple varices with reflux and the proximal segment small saphenous vein and from the mid to distal calf. Electronically signed by: Geronimo Ceballos MD 01/07/2025 10:05 AM EDT Dictated By: Geronimo Preciado MD Signed By: <Electronically signed by Geronimo Leyva MD in OV> 01/07/25 1005 DD/ 0846 TD/TT: 01/07/25 0936 Marine Cargo Inspector: Procedure Note Donotuseinterpreter, Image - 01/07/[address] [address] Ultrasound Report Signed Patient: Dolly Sanchez MMR#: [id number] : 1955cct:[id number] Age/Sex: 69 / FADM Date: 01/07/25 Loc: [facility] Attending Dr: Rosetta Peralta MD Ordering Physician: Rosetta Peralta Date of Service: 01/07/25 Procedure(s): US venous insuf bilat Accession Number(s): [id number] cc: Rosetta Peralta EXAMINATION: US LOWER EXTREMITY VENOUS (REFLUX EXAM), BILATERAL CLINICAL INFORMATION: Edema. Status post vena seal versus ablation. COMPARISON: None. TECHNIQUE: Color flow triplex imaging and compression Doppler was performed to evaluate both the deep and the superficial systems bilaterally. To evaluate the superficial system, the examination was performed in the upright position. Color-flow Doppler ultrasound and compression ultrasound were utilized. In addition, maneuvers were utilized to demonstrate reflux. FINDINGS: 1. DEEP VENOUS ULTRASOUND OF THE RIGHT LOWER EXTREMITY: Common Femoral Vein: Compressible, normal respiratory variation and augmented flow. Femoral Vein: Compressible, normal color flow and augmentation. Popliteal Vein: Compressible, normal augmentation. Deep Reflux: There is a 2492 ms reflux in the popliteal vein. There is no evidence of a Jha's cyst. 2. SUPERFICIAL ULTRASOUND WITH DOPPLER OF RIGHT LOWER EXTREMITY: GREAT SAPHENOUS VEIN: Saphenofemoral Junction: 0.6 cm; Reflux: 2440 ms Proximal Thigh: 0.5 cm; Reflux: 2168 ms Mid Thigh: Not seen. Distal Thigh: Not seen. At Knee: 0.3 cm; Reflux: 2336 ms Proximal Calf: 0.4 cm; Reflux: 0 ms Mid Calf: 0.3 cm; Reflux: 0 ms Distal Calf: 0.4 cm; Reflux: 0 ms DUPLICATED MEDIAL GREAT SAPHENOUS VEIN: Diameter: None imaged Reflux: NA DUPLICATED LATERAL GREAT SAPHENOUS VEIN: Diameter: 0.4 cm. Reflux: 2052 ms and 2208 ms at the junction and mid thigh, respectively. SMALL SAPHENOUS VEIN: Saphenopopliteal Junction: 1.1 cm; Reflux: 2608 ms Proximal: 0.5 cm; Reflux: 1244 ms Distal: 0.7 cm; Reflux: 2364 ms VEIN OF GIACOMINI: Size: NA Reflux: NA PERFORATORS: Location: Small saphenous vein mid segment. At the knee and proximal calf. Size: 0.2-0.5 cm. Reflux: 2284 ms at the knee. VARICOSITIES: Location: Small saphenous vein from the proximal to distal segments. Size: 0.4-0.7 cm. Reflux: 904 ms-2640 ms. 3. DEEP VENOUS ULTRASOUND OF THE LEFT LOWER EXTREMITY: Common Femoral Vein: Compressible, normal respiratory variation and augmented flow. Femoral Vein: Compressible, normal color flow and augmentation. Popliteal Vein: Compressible, normal augmentation. Deep Reflux: There is 1400 ms reflux in the femoral vein and 2036 ms reflux in the popliteal vein. There is no evidence of a Jha's cyst. 4. SUPERFICIAL ULTRASOUND WITH DOPPLER OF LEFT LOWER EXTREMITY: GREAT SAPHENOUS VEIN: Saphenofemoral Junction: 0.7 cm; Reflux: 0 ms Proximal Thigh: 0.3 cm; Reflux: 0 ms Mid Thigh: Not seen. Distal Thigh: Not seen. At Knee: 0.4 cm; Reflux: 2408 ms Proximal Calf: 0.4 cm; Reflux: 2700 ms Mid Calf: 0.4 cm; Reflux: 0 ms Distal Calf: 0.5 cm; Reflux: 2668 ms DUPLICATED MEDIAL GREAT SAPHENOUS VEIN: Diameter: None imaged Reflux: NA DUPLICATED LATERAL GREAT SAPHENOUS VEIN: Diameter: 0.2-0.3 cm. Reflux: NA SMALL SAPHENOUS VEIN: Saphenopopliteal Junction: 0.3 cm; Reflux: 0 ms Proximal: 0.4 cm; Reflux: 0 ms Distal: 0.3 cm; Reflux: 0 ms VEIN OF GIACOMINI: Size: NA Reflux: NA PERFORATORS: Location: Small saphenous vein proximal segment. At the knee, proximal and mid calf. Size: 0.1-0.3 cm. Reflux: NA VARICOSITIES: Location: Small saphenous vein proximal segment. At the knee and distal calf. Size: 0.3-0.4 cm. Reflux: 2104 ms-2632 ms. US/US venous insuf bilat IMPRESSION: Right: Venous insufficiency, great saphenous vein from the junction to the knee. Venous insufficiency accessory lateral saphenous vein at the junction and mid thigh. Venous insufficiency, small saphenous vein from the junction to the distal calf. Deep venous reflux, popliteal vein. Multiple varices with reflux throughout the small saphenous vein. Perforators with reflux at the knee. Left: Venous insufficiency, great saphenous vein from the knee to the ankle. Venous insufficiency, small saphenous vein at the distal calf. Deep venous reflux, femoral vein and popliteal vein. Multiple varices with reflux and the proximal segment small saphenous vein and from the mid to distal calf. Electronically signed by: Geronimo Ceballos MD 01/07/2025 10:05 AM EDT Dictated By: Geronimo Preciado MD Signed By: <Electronically signed by Geronimo Leyva MDin OV> 01/07/25 1005 DD/ 0846 TD/TT: 01/07/25 0936 Marine Cargo Inspector: us Rosetta Peralta MD CV VASCULAR PROCEDURES Edited Result - Final [facility] [address] [place] [phone] documented in this encounter Visit Diagnoses Diagnosis Varicose veins of both lower extremities with inflammation- Primary Swelling of both lower extremities documented in this encounter Additional Health Concerns Assessment Noted Time PHQ-9 Depression Total Score: 4 06/30/19 10:09 AM EST documented as of this encounter Care Teams Assistant Professor Of Dietetics Relationship Specialty Start Date End Date Hollie Garcia MD [address] [place] [address] PCP - General Internal Medicine 03/17/25 documented as of this encounter
--- OUTSIDE RECORDS SUMMARY | 2025-04-21 14:55 | XMS_ITS | Encounter Summary ---
Author Organization [employer] Address [address] [place] [address] Care Team Providers Care Climate Change Analyst Name Role Phone Hollie Garcia MD Primary Care Provide r Encounter Details Date Type Department Care Team ([facility] Contact Info) Description 01/12/2025 Telephone C OPTOMETRY [address] [place], [place] [phone] Aiyana Horan, OD [address] [place] [address] Social History Tobacco Use Types Packs/Day Years [...] Info) Description 06/08/2025 1:45 PM EST Telemedicine [facility] [address] [place], [place] [phone] Hollie Garcia MD [address] [place] [address] 07/12/2025 1:00 PM EST Office Visit [facility] OPTOMETRY [address] [place], [place] [phone] Aiyana Horan, OD [address] [place], [place] [phone] 09/23/2025 2:15 PM EDT Office Visit [facility] ADULT DENTAL [address] [place] [address] Dolly Roman [address] [place] [address] documented as of this encounter Visit Diagnoses Not on filedocumented in this encounter Additional Health Concerns Assessment Noted Time PHQ-9 Depression Total Score: 4 06/30/19 25 10:09 AM EST documented as of this encounter Care Teams Climate Change Analyst Relationship Specialty Start Date End Date Hollie Garcia MD [address] [place] [address] PCP - General Internal Medicine 03/17/25 documented as of this encounter
--- OUTSIDE RECORDS SUMMARY | 2025-04-21 14:55 | XMS_ITS | Clinical Summary ---
Author Organization [facility] Address [address] [place] [address] Care Team Providers Care Sales Enablement Analyst Name Role Phone Ginette Hills MD Primary Care Provider [phone] Source Comments PLEASE NOTE, if this patient [...] mcg/actuation inhalerIndications :Mild intermittent asthma with exacerbation Inhale 2 Puffs into the lungs 2 [...] mg tabletIndications: Mild persistent asthma without complication Take 1 Tablet by mouth once daily as needed for allergies 90 Tablet 3 4 Active albuterol HFA 90 mcg/actuation inhalerIndications :Mild persistent asthma without complication Inhale 2 Puffs into the lungs every 4 (four) hours as needed for shortness of breath or wheezing 18 g 4 Active mometasone-formote rol (DULERA) 200-5 mcg/actuation inhalerIndications :Mild persistent asthma without complication Inhale 2 Puffs into the lungs 2 (two) times daily 13 g 2 4 Active montelukast (SINGULAIR) 10 mg tabletIndications: Mild persistent asthma without complication Take 1 Tablet by mouth nightly at [...] Problem Noted Date Diagnosed Date Age-related osteoporosis erika erazo current pathological fracture 10/16/2023 Chronic right shoulder pain 05/16/2020 COVID-19 virus infection 11/03/2019 Overview (11/13/2019): Sx started 10/27 Tested + ER 11/01 Admitted--> d/c 10/31 O2 requirement--> weaned. Not intubated +remsidivir, + CAN-COVID study, possible biologic +abl imaging dx covid PNA +elevated inflamm markers Needs retesting for clearance Last Assessment & Plan: Graduated today from our f/u team because followed at [facility]. Has appt tomorrow with pcp Doing well, Her little rozina is staying with daughter until she is better. She is improving. I think she does meet criteria for ending isolation so will send to retesting pool [facility] has not called her yet. Discussed that they are supposed to , and to answer phone if sees they are calling. Gave her number of [facility] to call. She is anxious that she is not 100% yet and we discussed that does not have to be , to be off of isolation However does need retesting for clearance so sent to selma as above. Education/counselin) Reviewed with patient that [...] the community until they are contacted by [facility] and are cleared from isolation by [facility]. The criteria that DP will use is 10 days since symptom onset AND they have had 3 days without fever (without use of antipyretics) and 3 days of improving respiratory symptoms only* * Unless they meet retesting criteria, in which case they will need two negative retests >24 hours apart. Although [facility] is the only entity that can clear into community, we are able to provide clearance for work when they meet the above criteria. If they require work note for clearance, they can call their PCP office, our call our COVID follow-up team line at [phone] (7 days a week, 9AM-4PM). Their family [...] Hyperlipidemia 09/09/2016 Mild persistent asthma without complication 08/16 Assessment & Plan (08/21/2019 5:56 PM EST): [...] in 09/09/2016 Routine health maintenance 09/09/2016 Asthma 07/20/2010 Overview (11/20/2019): Overview: Asthma Overview: Overview: Asthma Overview: Asthma Allergic rhinitis 11/07/2001 Overview (11/20/2019): Overview: Allergic rhinitis Overview: Overview: Allergic rhinitis Resolved Problems Problem Noted Date Diagnosed Date Resolved Date Nonhealing skin ulcer, limit ed to breakdown of skin 09/09/2016 09/20/2020 Immunizations Immunization Administration Dates Next [...] 1975 CT Colonography 2002 Flexible Sigmoidoscopy 2002 Imm-RSV (adult) (1 - Risk 50 -74 years 1-dose series) 2007 Colonoscopy 03/23/2021 03/23/2011 Colorectal Cancer Screening 09/21/2023 FIT/gFOBT 09/21/2023 09/20/2022, 04/11/2022, 05/08/2021 Diabetes Screening 03/21/2024 03/21/2023, 1 , 09/20/2020, Additional history exists Alcohol and Drug Screen 06/17/2024 04/14/20 24, 10/14/2023, 05/21/2023, Additional history exists Depression Annual Screen 06/17/2024 04/14/2024 Bone Density Screening 09/04/2024 09/05/2023, 2023 Lipid Screening 10/14/2024 10/15/2023, 1010/2022, 03/21/2023, Additional history exists [id number] ( season) 2025 05/24/2022, 01/08/2022, 05/08/2021, Additional history exists Imm-Influenza (#1) 2025 03/19/2023, [...] Results * (ABNORMAL) LIPIDS W/RFLX DIRECT LDL ([id number]) (10/15/2023 2:34 PM EDT) CHOLESTEROL, TOTAL 158 <200 mg/dL 10/16/2023 4:16 AM EDT [facility] HDL CHOLESTEROL 63 > OR = 50 mg/dL 10/16/2023 4:16 AM EDT [facility] TRIGLYCERIDES 267(H) <150 mg/dL 10/16/2023 4:16 AM EDT [facility] LDL-CHOLESTEROL 64 mg/dL (calc) 10/16/2023 4:16 AM EDT [facility] CHOL/HDLC RATIO 2.5 <5.0 (calc) 10/16/2023 4:16 AM EDT [facility] NON-HDL CHOLESTEROL 95 <130 mg/dL (calc) 10/16/2023 4:16 AM EDT [facility] Blood Blood / Unknown 10/15/2023 2 :34 PM EDT 10/16/2023 2:36 AM EDT Narrative [facility] - 10/16/2023 4:56 AM EDT . If [...] LDL-C. Moshe GRAY et al. BARBIE. 2013;310(19): 8664-0469 (http://education.E-Duction/faq/BVL984) For patients with diabetes plus 1 major ASCVD risk factor, treating to a non-HDL-C goal of <100 mg/dL (LDL-C of <70 mg/dL) is considered a therapeutic option. Ginette Hills MD LAB - BLOOD DRAW Final Result [facility] [address] [address], [facility] [address] [place] [address] * CMP ([id number]) (03/21/2023 2:19 PM EDT) GLUCOSE 86 65 - 99 mg/dL 03/22/2023 7:53 AM [facility] UREA NITROGEN (BUN) 18 7 - 25 mg/dL 03/22/2023 7:53 AM [facility] CREATININE (blood) 0.68 0.50 - 1.05 mg/dL 03/22/2023 7:53 AM [facility] EGFR 96 > OR = 60 mL/min/1. 73m2 03/22/2023 7:53 AM [facility] BUN/CREATININE RATIO SEE NOTE: 6 - 22 (calc) 03/22/2023 7:53 AM [employer] [facility] SODIUM 139 135 - 146 mmol/L 03/22/2023 7:53 AM [facility] POTASSIUM 4.5 3.5 - 5.3 mmol/L 03/22/2023 7:53 AM [facility] CHLORIDE 103 98 - 110 mmol/L 03/22/2023 7:53 AM [facility] CARBON DIOXIDE 28 20 - 32 mmol/L 03/22/2023 7:53 AM [facility] CALCIUM 9.1 8.6 - 10.4 mg/dL 03/22/2023 7:53 AM [facility] PROTEIN, TOTAL 6.8 6.1 - 8.1 g/dL 03/22/2023 7:53 AM [facility] ALBUMIN 4.3 3.6 - 5.1 g/dL 03/22/2023 7:53 AM [facility] GLOBULIN 2.5 1.9 - 3.7 g/dL (calc) 03/22/2023 7:53 AM [facility] ALBUMIN/GLOBULI N RATIO 1.7 1.0 - 2.5 (calc) 03/22/2023 7:53 AM [facility] BILIRUBIN, TOTAL 0.4 0.2 - 1.2 mg/dL 03/22/2023 7:53 AM EDT [facility] ALKALINE PHOSPHATASE 79 37 - 153 U/L 03/22/2023 7:53 AM EDT [facility] AST 18 10 - 35 U/L 03/22/2023 7:53 AM EDT [facility] ALT 14 6 - 29 U/L 03/22/2023 7:53 AM EDT [facility] Blood Blood / Unknown 03/21/2023 2 :19 PM EDT 03/22/2023 1:41 AM EDT Narrative [facility] - 03/22/2023 8:58 AM EDT . Fasting reference interval . Not Reported: BUN and Creatinine are within reference range. . us Ginette Hills MD LAB - BLOOD DRAW Final Result Performing Organization Address City/[facility]/ZIP Co de Phone Number [facility] [address] [address], [facility] [address] [address] * COLOGUARD (09/20/2022 2:40 PM EDT) [facility] COLOGUARD DNA/OCCULT BLOOD SCREENING PRESENCE NEGATIVE Negative [facility] COLOGUARD DNA/OCCULT BLOOD SCREENING DESCRIPTIVE neg [facility] Stool Stool specimen / Unknown 09/20/2022 2:40 PM EDT us Ginette Hills MD LAB BODY FLUIDS AND STOOLS AMB ULATORY Final Result Performing Organization Address City/[facility]/ZIP Co de Phone Number [facility] [address] [facility] [id number] [place] [address], * HEPATITIS C AB W/RFLX HCV RNA, ([id number]) Recommended for screening (09/05/2016 4:34 PM EDT) [facility] HEPATITIS C ANTIBODY NON-REACTI VE NON-REACT IRVING [facility] SIGNAL TO CUT-OFF 0.01 <1.00 Nintu Oy Blood specimen (specimen) Blood / Unknown 09/05/2016 4:34 PM EDT 09/05/2016 4:35 PM EDT Narrative [facility] - 09/10/2016 12:21 PM EDT Performing Organization Information: [[id number]] : [email or web address], [address] [place] [address] Director: TOMI RIOJAS MD us Ginette Hills MD LAB - BLOOD DRAW Final Result [facility] [address] [address], [place] from Last 3 Months or Most Recently Relevant to Health Maintenance Insurance MED[place] Care Teams Sales Enablement Analyst Relationship Specialty Start Date End Date Ginette Hills MD [address] [facility] [place] [address] PCP - General Family Medicine, Physician 09/06/16
--- OUTSIDE RECORDS SUMMARY | 2025-04-21 14:55 | XMS_ITS | Encounter Summary ---
Author Organization [employer] Address [address] [place] [address] Care Team Providers Care Developmental Therapist Name Role Phone Hollie Garcia MD Primary Care Provide r Encounter Details Date Type Department Care Team (Latest Contact Info) Description 04/20/2025 Travel Social History Tobacco Use Types Packs/Day Years [...] AM EST documented as of this encounter Functional Status * Over the [...] than half the days 04/20/2025 2:09 PM Yue Alcaraz [place] * Feeling tired or having little energy Answer Date of Assessment Author More than half the days 04/20/2025 2:09 PM Yue Alcaraz [place] * Poor appetite or overeating Answer [...] than half the days 04/20/2025 2:09 PM Yue Alcaraz [place] * Thoughts that you would be better off or hurting yourself in some way Answer Date of Assessment Author Not at all 04/20/2025 2:09 PM Tree Gonzalez ra, [place] * Patient Health Questionnaire-9 Score Answer Date of Assessment Author 10 04/20/2025 2:09 PM Soren Gonzalez [place] * How difficult have these problems [...] to sit still 1 04/20/2025 2:09 PM uYe Gonzalez [place] Becoming easily annoyed or irritable 0 11/09/2024 2:09 PM EST Yue Hyde [place] Feeling afraid as if somethi ng awful might happen 0 04/20/2025 2:09 PM EST Yue Hyde [place] SAMMIE-7 Total Score 5 04/20/2025 2:09 PM EST Yue Hyde [place] documented as of this encounter Plan of Treatment Upcoming Encounters Date Type Department Care Team (Late st Contact Info) Description 06/08/2025 1:45 PM EST Telemedicine [facility] MEDICINE [address] [place] [address] Hollie Garcia MD [address] [place] [address] 07/12/2025 1:00 PM EST Office Visit [facility] OPTOMETRY [address] [place] [address] TarAiyana heart, OD [address] [place] [address] 09/23/2025 2:15 PM EDT Office Visit [facility] ADULT DENTAL [address] [place] [address] Jessie Dolly [address] [place] [address] documented as of this encounter Visit Diagnoses Not on filedocumented in this encounter Additional Health Concerns Assessment Noted Time PHQ-9 Depression Total Score: 10 025 2:09 PM EST documented as of this encounter Care Teams Developmental Therapist Relationship Specialty Start Date End Date Hollie Garcia MD [address] [place] [address] PCP - General Internal Medicine 03/17/25 documented as of this encounter
--- OUTSIDE RECORDS SUMMARY | 2025-04-21 14:55 | XMS_ITS | Encounter Summary ---
Author Organization [employer] Address [address] [place] [address] Care Team Providers Care Med Dir Name Role Phone Hollie Garcia MD Primary Care Provide r Encounter Details Date Type Department Care Team (Late st Contact Info) Description 10/07/2024 Telephone [facility] MEDICINE [address] [place], [place] [phone] Rosetta Peralta MD [address] [place] [address] Social History Tobacco Use Types Packs/Day Years [...] Info) Description 06/08/2025 1:45 PM EST Telemedicine [facility] MEDICINE [address] [place], [place] [phone] Hollie Garcia MD [address] [place] [address] 07/12/2025 1:00 PM EST Office Visit [facility] OPTOMETRY [address] [place], [place] [phone] Aiyana Horan, OD [address] [place], [place] [phone] 09/23/2025 2:15 PM EDT Office Visit [facility] ADULT DENTAL [address] [place] [address] Dolly Roman [address] [place] [address] documented as of this encounter Visit Diagnoses Not on filedocumented in this encounter Additional Health Concerns Assessment Noted Time PHQ-9 Depression Total Score: 4 06/30/19 25 10:09 AM EST documented as of this encounter Care Teams Med Dir Relationship Specialty Start Date End Date Hollie Garcia MD [address] [place] [address] PCP - General Internal Medicine 03/17/25 documented as of this encounter
--- OUTSIDE RECORDS SUMMARY | 2025-04-21 14:56 | XMS_ITS | Encounter Summary ---
Author Organization [employer] Address [address] [place] [address] Care Team Providers Care Rubber Compounder Mixer Name Role Phone Hollie Garcia MD Primary Care Provide r Reason for Visit * Reason Onset Date Comments Chart Prep 04/19/2025 Encounter Details Date Type Department Care Team ([facility] Contact Info) Description 04/19/2025 Telephone [facility] MEDICINE [address] [place], [place] [phone] Hollie Garcia MD [address] [place] [address] Chart Prep Social History Tobacco Use Types Packs/Day Years [...] the past 12 months, has t he [employer], gas, oil or water [employer] threatened to shut off services in your [...] AM EST documented as of this encounter Miscellaneous Notes * Telephone Encounter - Paula Mtz [place] - 04/19/2025 9:43 AM EST Chart Prep Labs: done Images: done Referrals: not applicable Vaccines due: Flu and RSV Screenings: Hep C Screening Overdue care gaps: PHQ-9 and SAMMIE-7 documented in this encounter Plan of Treatment Upcoming Encounters Date Type Department Care Team (Late st Contact Info) Description 06/08/2025 1:45 PM EST Telemedicine [facility] MEDICINE [address] [place] [address] Hollie Garcia MD [address] [place] [address] 07/12/2025 1:00 PM EST Office Visit [facility] OPTOMETRY [address] [place] [address] TarkaAiyana, OD [address] [place] [address] 09/23/2025 2:15 PM EDT Office Visit [facility] ADULT DENTAL [address] [place] [address] Jesise Dolly [address] [place] [address] documented as of this encounter Visit Diagnoses Not on filedocumented in this encounter Additional Health Concerns Assessment Noted Time PHQ-9 Depression Total Score: 4 06/30/19 10:09 AM EST documented as of this encounter Care Teams Rubber Compounder Mixer Relationship Specialty Start Date End Date Hollie Garcia MD [address] [place] [phone] PCP - General Internal Medicine 03/17/25 documented as of this encounter
--- OUTSIDE RECORDS SUMMARY | 2025-04-21 14:56 | XMS_ITS | Encounter Summary ---
Author Organization [employer] Address [address] [place] [address] Care Team Providers Care Municipal Engineer Name Role Phone Hollie Garcia MD Primary Care Provide r Reason for Visit * Reason Onset Date Comments PT-1 01/06/2025 Encounter Details Date Type Department Care Team ([facility] Contact Info) Description 01/06/2025 Telephone [facility] MEDICINE [address] [place], [place] [phone] Rosetta Peralta MD [address] [place], [place] [phone] PT-1 Social History Tobacco Use Types Packs/Day Years [...] encounter Miscellaneous Notes * Telephone Encounter - Tucker Bradford - 01/06/2025 3:48 PM EDT Patient calling requesting PT1 Home Address verified: Y/N: Yes Provider name or facility name: [facility] Facility Address: [address] [place] [address] [address] Floor, [place] [address] Escort needed: Y/N: No Do you have a wheelchair: Y/N: No If yes- Manual or electric: N/A Visits: once a month documented in this encounter Plan of Treatment Upcoming Encounters Date Type Department Care Team (Late st Contact Info) Description 06/08/2025 1:45 PM EST Telemedicine [facility] MEDICINE [address] [place] [address] Hollie Garcia MD [address] [place] [address] 07/12/2025 1:00 PM EST Office Visit [facility] OPTOMETRY [address] [place] [address] TarAiyana heart, OD [address] [place] [address] 09/23/2025 2:15 PM EDT Office Visit [facility] ADULT DENTAL [address] [place] [address] JessieDolly soriano [address] [place] [address] documented as of this encounter Visit Diagnoses Not on filedocumented in this encounter Additional Health Concerns Assessment Noted Time PHQ-9 Depression Total Score: 4 06/30/19 10:09 AM EST documented as of this encounter Care Teams Municipal Engineer Relationship Specialty Start Date End Date Hollie Garcia MD [address] [place] [address] PCP - General Internal Medicine 03/17/25 documented as of this encounter
--- OUTSIDE RECORDS SUMMARY | 2025-04-21 14:56 | XMS_ITS | Clinical Summary ---
Author Organization [employer] Address [address] [facility] [address] [place] [address] Care Team Providers Care Manager Talent Acquisition Name Role Phone Hollie Garcia MD Primary Care Provide r Allergies Active Allergy Reactions Criticality Noted Date Comments Aspirin Unknown 03/31/2021 Ibuprofen Rash Low 09/05/2016 Nsaids Rash High 08/07/2019 Medications Diclofenac Sodium 1 % gelIndications:Nallely whitney osteoarthritis of knee, unspecified laterality Apply topically 2 times daily. 10/12/19 23 Active rosuvastatin (Crestor) 40 MG tablet Take 1 tablet (40 mg) by mouth Once per day. 90 tablet 3 06/30/19 25 Active loratadine (Claritin) 10 MG tabletIndications: Allergic rhinitis, unspecified seasonality, unspecified trigger Take 1 tablet (10 mg) by mouth Once per day. 90 tablet 3 06/30/19 25 Active fenofibrate (Tricor) 54 MG tabletIndications: Mixed hyperlipidemia Take 1 tablet (54 mg) by mouth Once per day. 90 tablet 3 06/30/19 25 026 Active Calcium 500-2.5 MG-MCG chewable tabletIndications: Age-related osteoporosis without current pathological fracture Chew 1 tablet Once per day. 90 tablet 3 06/30/19 25 Active estradiol (Estrace) 0.1 MG/GM vaginal creamIndications:F emale genital prolapse, unspecified type Insert 1 g into the vagina at bedtime. 42.5 g 3 06/30/19 25 Active Blood Pressure Monitoring (Blood Pressure Cuff) miscIndications:Pr imary hypertension 1 each Once per day. 1 each 07/01/19 25 Active meclizine (Antivert) 25 MG tablet TAKE 1 TABLET BY MOUTH THREE TIMES DAILY IN THE MORNING, AT NOON, AND AT BEDTIME NEEDED FOR DIZZINESS FOR UP TO 10 DAYS 10/08/19 Active acetaminophen (Tylenol) 500 MG tablet Take 1 tablet by mouth Every 4-6 hours as needed for mild pain or headaches. Active albuterol 108 (90 Base) MCG/ACT inhalerIndications :Moderate persistent asthma with exacerbation Inhale 2 puffs every 4 (four) hours if needed for wheezing or shortness of breath. 18 g 11 12/10/19 Active montelukast (Singulair) 10 MG tabletIndications: Moderate persistent asthma with exacerbation Take 1 tablet (10 mg) by mouth at bedtime. 90 tablet 3 12/10/19 Active Spacer/Aero-Holdin g Chambers (OptiChamber Tia) misc 1 each every 4 (four) hours if needed (asthma). 1 each 12/17/19 Active albuterol (2.5 MG/3ML) 0.083% nebulizer solution Take 3 mL (2.5 mg) by nebulization every 6 (six) hours if needed for wheezing or shortness of breath. 75 mL 1 12/17/19 25 026 Active azithromycin (Zithromax Z-Tobi) 250 MG tablet Take 2 tablets once on day 1, then 1 tablet 1x/day for 4 days. 6 tablet 12/17/19 Active Nebulizer misc 1 kit Every 4-6 hours as needed (for shortness of breath/wheezing) . Active alendronate (Fosamax) 70 MG tabletIndications: Age-related osteoporosis without current pathological fracture Take 1 tablet (70 mg) by mouth every 7 (seven) days. Take in the morning with a full glass of water, on an empty stomach, and do not take anything else by mouth or lie down for the next 30 min. 4 tablet 11 04/20/20 026 Active Active Problems Problem Noted Date Diagnosed Date Varicose veins of both lower extremities with pa in 04/20/2025 Pain in both lower extremities 04/20/2025 Current mild episode of enid r depressive disorder without prior episode 04/20/2025 Moderate persistent asthma with exacerbation Assessment & Plan (12/09/2024 4:34 PM EDT): Patient educated to avoid triggers I will prescribe for her albuterol inhaler plus refills of the montelukast and also today prednisone 40 mg for 5 days Nebulization with albuterol done at the office after which patient felt much better Dental abscess 09/16/2024 Localized gingival recession, severe 09/16/2024 Closed fracture of right orbital floor, sequela 06/30/2024 Closed fracture of nasal bone with routine heali ng 01/13/2024 Assessment & Plan (07/01/2024 12:21 PM EST): Secondary to mechanical fall Still considering whether to have ENT repair orbital fracture and septum damage Age-related osteoporosis wit hout current pathological fracture 10/16/2023 Assessment & Plan (07/01/2024 12:21 PM EST): DEXA 08/2023 showed T score -2.6 On Ca/Vit D Consider Alendronate at next visit, attempt to obtain more history as to why this has not been done currently Chronic right shoulder pain 05/16/2020 Thoracic back pain 07/15/2018 Female genital prolapse 10/18/2016 Assessment & Plan (07/01/2024 12:20 PM EST): S/p hysterectomy for this indication History of vaginal hysterectomy 10/18/2016 Overview (06/30/2024): 2016 due to prolapse Hyperlipidemia 09/09/2016 Mild persistent asthma without complication 08/16 Assessment & Plan (07/01/2024 12:26 PM EST): On Montelukast, Dulera, and TASHI prn Varicose veins of lower extremity 09/09/2016 Overview (06/30/2024): Added automatically from request for surgery [id number] Vitamin D deficiency 09/09/2016 Overview (06/30/2024): ICD10 Fall 2018 Code Replacement 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 Overview (06/30/2024): Chondromalacia Cyst of Bartholin's gland duct 11/01/2010 Overview (06/30/2024): Cyst of Bartholin's gland duct; left marsup of loculated barthonlins glad cyst 11/14/10 Osteoarthritis of knee 03/29/2009 Overview (06/30/2024): Osteoarthritis of knee; bilateral xrays 03/25 Actinic keratosis 12/23/2007 Overview (06/30/2024): Actinic keratosis; seen in derm, did not use effudex Allergic rhinitis 11/07/2001 Overview (06/30/2024): Allergic rhinitis Allergic rhinitis Resolved Problems Problem Noted Date Diagnosed Date Resolved Date Nonhealing skin ulcer, limit ed to breakdown of skin ([facility]) 06/30/2024 11/30/2024 Fracture of right orbital floor 01/13/2024 01/08/2025 Dry eye syndrome of both eyes 10/09/2023 01/08/2025 Nuclear senile cataract of both eyes 10/09/2023 01/08/2025 Astigmatism of both eyes with presbyopia 11/12/2017 01/08/2025 Cataract 11/12/2017 01/08/2025 Visual impairment 09/09/2016 01/08/2025 Hypertension 09/26/2010 12/01/2024 Assessment & Plan (07/01/2024 12:20 PM EST): Managed by diet and exercise currently, will prescribe BP cuff to monitor at home and consider needs for BP medications based on those value Asthma 07/20/2010 07/01/2024 Encounters Date Type Department Care Team Description 04/20/2025 1:15 PM EST Office Visit [facility] MEDICINE [address] [place] [phone] Hollie Garcia MD Mixed hyperlipidemia (Primary Dx); Varicose veins of [...] of major depressive disorder without prior episode ([facility]) 04/20/2025 Travel 04/19/2025 Telephone [facility] MEDICINE [address] [place] [phone] Hollie Garcia MD Chart Prep 04/13/2025 Patient Outreach [facility] MEDICINE [address] [place] [address] Hollie Garcai MD Pre-visit Planning (Pre visit planning unable to LVM ) 03/24/2025 12:45 PM EDT Office Visit [facility] ADULT DENTAL [address] [place] [address] Sapphire Hernandez Dental calculus (Primary Dx); Dental plaque; Encounter for dental examination; Dental caries; Bone loss of mandible 03/23/2025 Outside Procedure [facility] OPTOMETRY [address] [place] [address] Zachariah, Zeny, OD Presbyopia (Primary Dx) 03/18/2025 2:30 PM EDT Office Visit [facility] OPTOMETRY [address] [place] [address] Zachariah, Zeny, OD Hyperopia of both eyes (Primary Dx) from Last 3 Months Immunizations Immunization Administration Dates Next Due Influenza injectable quadriv alent IIV4 with preservative 03/25/2018,03/14/2015 Influenza injectable quadriv alent preservative free 03/19/2023,05/24/2022,03/31/2021,08/07 Influenza, High Dose Seasona l, Preservative Free 04/20/2025 Influenza, IIV3, injectable 04/04/2014,0 09/04/2009,03/18/2009,03/23 Influenza, Unspecified 03/07/2010,03/18/2009,12/2004 Pneumococcal Conjugate PCV 20 03/21/2023 Pneumococcal Polysaccharide PPSV23 07/26/2017 TD (adult), 2 Lf tetanus tox oid, preservative free, adsorbed 03/06/2005 Td (adult), unspecified 03/06/2005 Tdap 12/20/2023,07/26/2017,12/01/2012 Zoster, Recombinant 01/09/2021,08/21/2019 Social History Tobacco Use Types Packs/Day Years Used Date Smoking Tobacco: Never Smokeless Tobacco: Never Tobacco Cessation:Counseling Given: Not Answered Alcohol Use Standard Drinks/Week Comments Never 0 [...] Don't know 06/29/2024 10 :14 AM EST Last Filed Vital Signs Vital Sign Reading [...] Mass Index 29.56 04/20/2025 1:21 PM EST Plan of Treatment Upcoming Encounters Date Type Department Care Team (Late st Contact Info) Description 06/08/2025 1:45 PM EST Telemedicine [facility] MEDICINE [address] [place] [address] Hollie Garcia MD [address] [place] [address] 07/12/2025 1:00 PM EST Office Visit [facility] OPTOMETRY [address] [place] [address] Aiyana Horan OD [address] [place] [address] 09/23/2025 2:15 PM EDT Office Visit [facility] ADULT DENTAL [address] [place] [address] Dolly Roman [address] [place] [address] Health Maintenance Due Date Last Done Comments CT Colonography 1957 Colonoscopy 1957 Dental X-Ray: Bitewings 1957 FIT 1957 Lipid Panel 1957 Sigmoidoscopy 1957 Hepatitis C Screening 1975 RSV Patients and Patients Aged 60 years or older (1 - Risk 60-74 years 1-dose series) 2017 FOBT 09/21/2023 09/20/2022 COVID-19 Vaccine ( season) 2025 05/24/2022, 01/08/2022, 05/08/2021, Additional history exists SDOH Screening 06/30/2025 06/30/2024 Alcohol/Substance Use Screening 07/01/2025 07/01/2024 Colorectal Cancer Screening 09/20/2025 FIT DNA/Cologuard 09/20/2025 09/20/2022 Dental Oral Exam 09/23/2025 03/24/2025, 08/12/2024 Dental Prophylaxis 09/23/2025 03/24/2025, 08/13/2024 Depression Monitoring 10/18/2025 04/20/2025, 025 Mammogram 02/24/2026 02/25/2024, 02/15, 09/03/2022, Additional history exists Tobacco Screening 04/20/2026 04/20/2025 Dental X-Ray: Full Mouth 08/13/2027 08/12/2024 DTaP/Tdap/Td Vaccines (4 - Td or Tdap) 12/19/2033 12/20/2023, 07/26/2017, 12/01/2012, Additional history exists Zoster Vaccines Completed 01/09/2021, 08/21/2019 Pneumococcal Vaccine: 50+ Years Completed 03/21/2023, 07/26/2017 Influenza Vaccine Completed 04/20/2025, , 05/24/2022, Additional history exists HIB Vaccines Aged Out No longer eligi ble based on patient's age to complete this topic HPV Vaccines Aged Out No longer eligi ble based on patient's age to complete this topic Hepatitis A Vaccines Aged Out No long er eligible based on patient's age to complete this topic Hepatitis B Vaccines Aged Out No long er eligible based on patient's age to complete this topic IPV Vaccines Aged Out No longer eligi ble based on patient's age to complete this topic Meningococcal B Vaccine Aged Out No l onger eligible based on patient's age to complete this topic Meningococcal Vaccine Aged Out No gianna chad eligible based on patient's age to complete this topic RSV under 20 months Aged Out No longe r eligible based on patient's age to complete this topic Rotavirus Vaccines Aged Out No longer eligible based on patient's age to complete this topic Procedures Procedure Name Priority Date/Time Associated Diagnosis Comments PERIODIC ORAL EVALUATION - ESTABLISHED PATIENT Routine 03/24/2025 12:45 PM EDT Dental calculus Dental plaque Encounter for dental examination Dental caries Bone loss of mandible ORAL HYGIENE INSTRUCTIONS Routine 03/24/2025 12:45 PM EDT Dental calculus Dental plaque PROPHYLAXIS - ADULT Routine 03/24/2025 1 2:45 PM EDT Dental calculus Dental plaque CASE PRESENTATION, DETAILED AND EXTENSIVE TREATMENT PLANNING Routine 03/24/2025 12:45 PM EDT PANORAMIC RADIOGRAPHIC IMAGE Routine 08/12/2024 2:00 PM EST Encounter for dental examination Teeth missing Dental abscess from Last 3 Months or Most Recently Relevant to Health Maintenance Insurance [facility] AD[place] Care Teams Manager Talent Acquisition Relationship Specialty Start Date End Date Hollie Garcia MD [address] [place] [phone] PCP - General Internal Medicine 03/17/25
== END 2025-04-21 12:14 | disposition home or self-care (01) ==
LOC: HO.XRAY 12:13
PROVIDERS: PCP Internal Medicine; Visit Provider Internal Medicine
DX: M25.511 Pain in right shoulder (principal); G89.29 Other chronic pain
CPT/HCPCS: 73030

== ENCOUNTER → 2025-04-21 12:19 | Outpatient (BNV) | payer MEDICARE, MEDICAID, SELFPAY | PROVIDERS: PCP Internal Medicine; Visit Provider Radiology Diagnostic Ultrasound | DX: M19.011 Primary osteoarthritis, right shoulder (principal) | CPT/HCPCS: 73030 ==

== ENCOUNTER 2025-04-28 09:05 | Outpatient (REF) | payer MEDICARE, MEDICAID, SELFPAY ==
--- OUTSIDE RECORDS SUMMARY | 2025-04-28 09:52 | XMS_ITS | Clinical Summary ---
Author Organization [facility] Address [address] [place] [address] Care Team Providers Care Steam Tender Name Role Phone Ginette Hills MD Primary Care Provider [phone] Source Comments PLEASE NOTE, if this patient [...] our f/u team because followed at [facility]. Has appt tomorrow with pcp Doing well, Her little rozina is staying with daughter until she is better. She is improving. I think she does meet criteria for ending isolation so will send to retesting pool [facility] has not called her yet. Discussed that they are supposed to , and to answer phone if sees they are calling. Gave her number of [facility] to call. She is anxious that she is not 100% yet and we discussed that does not have to be , to be off of isolation However does need retesting for clearance so sent to [facility] as above. Education/counselin) Reviewed with patient that [...] the community until they are contacted by [facility] and are cleared from isolation by [facility]. The criteria that DP will use is 10 days since symptom onset AND they have had 3 days without fever (without use of antipyretics) and 3 days of improving respiratory symptoms only* * Unless they meet retesting criteria, in which case they will need two negative retests >24 hours apart. Although [facility] is the only entity that can clear into community, we are able to provide clearance for work when they meet the above criteria. If they require work note for clearance, they can call their PCP office, our call our COVID follow-up team line at [phone] (7 days a week, 9AM-4PM). Their family [...] 10/14/2024 10/15/2023, 1010/2022, 03/21/2023, Additional history exists [id number] ( season) 2025 05/24/2022, 01/08/2022, 05/08/2021, Additional [...] Results * (ABNORMAL) LIPIDS W/RFLX DIRECT LDL ([id number]) (10/15/2023 2:34 PM EDT) CHOLESTEROL, TOTAL 158 <200 mg/dL 10/16/2023 4:16 AM EDT [facility] HDL CHOLESTEROL 63 > OR = 50 mg/dL 10/16/2023 4:16 AM EDT [facility] TRIGLYCERIDES 267(H) <150 mg/dL 10/16/2023 4:16 AM EDT [facility] LDL-CHOLESTEROL 64 mg/dL (calc) 10/16/2023 4:16 AM EDT [facility] CHOL/HDLC RATIO 2.5 <5.0 (calc) 10/16/2023 4:16 AM EDT [facility] NON-HDL CHOLESTEROL 95 <130 mg/dL (calc) 10/16/2023 4:16 AM EDT [facility] Blood Blood / Unknown 10/15/2023 2 :34 PM EDT 10/16/2023 2:36 AM EDT Narrative [facility] - 10/16/2023 4:56 AM EDT . If [...] LDL-C. Moshe GRAY et al. BARBIE. 2013;310(19): 4476-6245 (http://education.High Fidelity/faq/GJQ037) For patients with diabetes plus 1 major ASCVD risk factor, treating to a non-HDL-C goal of <100 mg/dL (LDL-C of <70 mg/dL) is considered a therapeutic option. Ginette Hills MD LAB - BLOOD DRAW Final Result [facility] [address] [address], [facility] [address] [place] [address] * CMP ([id number]) (03/21/2023 2:19 PM EDT) GLUCOSE 86 65 - 99 mg/dL 03/22/2023 7:53 AM [employer]Do It Original [facility] UREA NITROGEN (BUN) 18 7 - 25 mg/dL 03/22/2023 7:53 AM [facility] CREATININE (blood) 0.68 0.50 - 1.05 mg/dL 03/22/2023 7:53 AM [facility] EGFR 96 > OR = 60 mL/min/1. 73m2 03/22/2023 7:53 AM [facility] BUN/CREATININE RATIO SEE NOTE: 6 - 22 (calc) 03/22/2023 7:53 AM [employer] It Original [facility] SODIUM 139 135 - 146 mmol/L 03/22/2023 7:53 AM [facility] POTASSIUM 4.5 3.5 - 5.3 mmol/L 03/22/2023 7:53 AM [facility] CHLORIDE 103 98 - 110 mmol/L 03/22/2023 7:53 AM [facility] CARBON DIOXIDE 28 20 - 32 mmol/L 03/22/2023 7:53 AM [facility] CALCIUM 9.1 8.6 - 10.4 mg/dL 03/22/2023 7:53 AM [facility] PROTEIN, TOTAL 6.8 6.1 - 8.1 g/dL 03/22/2023 7:53 AM [facility] ALBUMIN 4.3 3.6 - 5.1 g/dL 03/22/2023 7:53 AM [facility] GLOBULIN 2.5 1.9 - 3.7 g/dL (calc) 03/22/2023 7:53 AM [facility] ALBUMIN/GLOBULI N RATIO 1.7 1.0 - 2.5 (calc) 03/22/2023 7:53 AM [facility] BILIRUBIN, TOTAL 0.4 0.2 - 1.2 mg/dL 03/22/2023 7:53 AM EDT [facility] ALKALINE PHOSPHATASE 79 37 - 153 U/L 03/22/2023 7:53 AM EDT [facility] AST 18 10 - 35 U/L 03/22/2023 7:53 AM EDT [facility] ALT 14 6 - 29 U/L 03/22/2023 7:53 AM EDT [facility] Blood Blood / Unknown 03/21/2023 2 :19 PM EDT 03/22/2023 1:41 AM EDT Narrative [facility] - 03/22/2023 8:58 AM EDT . Fasting reference interval . Not Reported: BUN and Creatinine are within reference range. . us Ginette Hills MD LAB - BLOOD DRAW Final Result Performing Organization Address City/[facility]/ZIP Co de Phone Number [facility] [address] [address], [facility] [address] [address] * COLOGUARD (09/20/2022 2:40 PM EDT) [facility] COLOGUARD DNA/OCCULT BLOOD SCREENING PRESENCE NEGATIVE Negative [facility] COLOGUARD DNA/OCCULT BLOOD SCREENING DESCRIPTIVE neg [facility] Stool Stool specimen / Unknown 09/20/2022 2:40 PM EDT us Ginette Hills MD LAB BODY FLUIDS AND STOOLS AMB ULATORY Final Result Performing Organization Address City/[facility]/ZIP Co de Phone Number [facility] [address] [facility] [id number] [place] [address], * HEPATITIS C AB W/RFLX HCV RNA, ([id number]) Recommended for screening (09/05/2016 4:34 PM EDT) [facility] HEPATITIS C ANTIBODY NON-REACTI VE NON-REACT IRVING [facility] SIGNAL TO CUT-OFF 0.01 <1.00 [facility] Blood specimen (specimen) Blood / Unknown 09/05/2016 4:34 PM EDT 09/05/2016 4:35 PM EDT Narrative [facility] - 09/10/2016 12:21 PM EDT Performing Organization Information: [927] : [facility], [address], [place] [address] Director: TOMI RIOJAS MD us Ginette Hills MD LAB - BLOOD DRAW Final Result [facility] [address] [address], [place] from Last 3 Months or Most Recently Relevant to Health Maintenance [place] Care Teams Steam Tender Relationship Specialty Start Date End Date Ginette Hills MD [address] [facility] [address] PCP - General Family Medicine, Physician 09/06/16
--- OUTSIDE RECORDS SUMMARY | 2025-04-28 09:52 | XMS_ITS | Clinical Summary ---
Author Organization [employer] Address [address] [facility] 7t [place] [address] Care Team Providers Care Passenger Representative Name Role Phone Hollie Garcia MD Primary Care Provide r Allergies Active Allergy Reactions Criticality Noted Date Comments Aspirin Unknown 03/31/2021 Ibuprofen Rash Low 09/05/2016 Nsaids Rash High 08/07/2019 Medications * This document contains information received from the source organization and may not represent a complete record from that organization. Diclofenac Sodium 1 % gelIndications:Nallely whitney osteoarthritis [...] for the next 30 min. 4 tablet 04/20/20 026 Active Active Problems Problem Noted [...] (06/30/2024): Added automatically from request for surgery [id number] Vitamin D deficiency 09/09/2016 Overview (06/30/2024): ICD10 [...] ulcer, limit ed to breakdown of skin ([facility]) 06/30/2024 11/30/2024 Fracture of right orbital floor [...] on those value Asthma 07/20/2010 07/01/2024 Encounters * This document contains information received from the source organization and may not represent a complete record from that organization. Date Type Department Care Team Description 04/21/2025 Telephone [facility] MEDICINE [address] [place] [phone] Hollie Garcia MD DME compression stockings 04/20/2025 1:15 PM EST Office Visit [facility] MED[facility]INE [address] [place] [address] [phone] Hollie Garcia MD Mixed hyperlipidemia (Primary Dx); [...] of major depressive disorder without prior episode ([facility]) 04/20/2025 Travel 04/19/2025 Telephone [facility]INE [address] [place] [address] Hollie Garcia MD Chart Prep 04/13/2025 Patient Outreach [facility] [address] [place] [address] Hollie Garcia MD Pre-visit Planning (Pre visit planning unable to LVM ) 03/24/2025 12:45 PM EDT Office Visit [facility] ADULT DENTAL [address] [place] [address] Sapphire Hernandez Dental calculus (Primary Dx); Dental plaque; Encounter for dental examination; Dental caries; Bone loss of mandible 03/23/2025 Outside Procedure [facility] OPTOMETRY [address] [place] [address] Zachariah, Zeny, OD Presbyopia (Primary Dx) 03/18/2025 2:30 PM EDT Office Visit [facility] OPTOMETRY [address] [place] [address] Zachariah, Zeny, OD Hyperopia of both eyes [...] 06/08/2025 1:45 PM EST Telemedicine [facility] MEDICINE [address] [place], [place] [phone] Hollie Garcia MD 230 [place] [address] 07/12/2025 1:00 PM EST Office Visit [facility] OPTOMETRY [address] [place], [place] [phone] Aiyana Horan, OD [address] [place] [address] 09/23/2025 2:15 PM EDT Office Visit [facility] ADULT DENTAL [address] [facility] [place] [address] Dolly Roman 230 [place] [address] Health Maintenance Due Date Last Done Comments CT Colonography 1955 Colonoscopy 1955 Dental X-Ray: Bitewings 1957 FIT 1957 Lipid Panel 1955 Sigmoidoscopy 1955 Hepatitis C Screening 1975 RSV Patients and Patients Aged 60 years or older (1 - Risk 50-74 years 1-dose series) 2007 FOBT 09/21/2023 09/20/2022 COVID-19 Vaccine ( season) [...] Procedure Name Priority Date/Time Associated Diagnosis Comments XR SHOULDER 2+ VIEWS RIGHT Routine 04/21/2025 1:07 PM EST Chronic right shoulder pain PERIODIC ORAL EVALUATION - ESTABLISHED PATIENT Routine [...] Recently Relevant to Health Maintenance Results * XR Shoulder 2+ Views Right (04/21/2025 1:07 PM EST) Anatomical Region Laterality Modality Upper Extremities, Shoulder Right Radi ographic Imaging 04/21/2025 1:07 PM EST Narrative 04/22/2025 7:29 AM EST [address] [address] XRay Report Signed Patient: Dolly Sanchez MR#: [id number] 69 : 1955 Acct:[id number] Age/Sex: 70 / F ADM Date: 04/21/25 Loc: HO.NICCI Attending Dr: Hollie Rodriguez MD Ordering Physician: Hollie Garcia MD Date of Service: 04/21/25 Procedure(s): XR shoulder RT min 2V Accession Number(s): [id number] cc: Hollie Garcia MD Reason for Exam: pain EXAMINATION: XR SHOULDER, RIGHT CLINICAL INFORMATION: pain COMPARISON: None available. TECHNIQUE: AP external rotation, Grashey, scapular Y, and axillary views of the right shoulder. FINDINGS: Bone mineralization is decreased. Moderate acromioclavicular arthritis. No visible acute fracture, dislocation or suspicious bony lesion. No significant glenohumeral joint space narrowing. No abnormal soft tissue calcification. XR/XR shoulder RT min 2V IMPRESSION: Moderate acromioclavicular arthritis Electronically signed by: Brandon Severino MD 04/22/2025 07:26 AM EST Dictated By: Brandon Severino MD Signed By: <Electronically signed by Brandon Severino MD in OV> 04/22/25 0726 DD/ 1307 TD/TT: 04/21/25 1312 Wireline Supervisor: Procedure Note Donotuseinterpreter, Image - 04/22/[address] [address] XRay Report Signed Patient: Dolly Sanchez MMR#: [id number] [birth year] : 1955cct:[id number] Age/Sex: 70 / FADM Date: 04/21/25 Loc: [facility] Attending Dr: Hollie Rodriguez MD Ordering Physician: Hollie Garcia MD Date of Service: 04/21/25 Procedure(s): XR shoulder RT min 2V Accession Number(s): [id number] cc: Hollie Garcia MD Reason for Exam: pain EXAMINATION: XR SHOULDER, RIGHT CLINICAL INFORMATION: pain COMPARISON: None available. TECHNIQUE: AP external rotation, Grashey, scapular Y, and axillary views of the right shoulder. FINDINGS: Bone mineralization is decreased. Moderate acromioclavicular arthritis. No visible acute fracture, dislocation or suspicious bony lesion. No significant glenohumeral joint space narrowing. No abnormal soft tissue calcification. XR/XR shoulder RT min 2V IMPRESSION: Moderate acromioclavicular arthritis Electronically signed by: Brandon Severino MD 04/22/2025 07:26 AM EST Dictated By: Brandon Severino MD Signed By: <Electronically signed by Brandon Severino MD in OV> 04/22/25 0726 DD/ 1307 TD/TT: 04/21/25 1312 Wireline Supervisor: THALIA Hollie Rodriguez MD IMG XR PROCEDURES Fin al Result from Last 3 Months Insurance [facility] STANDARD MEDICARE [facility] STAND ADULT Care Teams Passenger Representative Relationship Specialty Start Date End Date Hollie Garcia MD [address] [place] [phone] PCP - General Internal Medicine 03/17/25
--- OUTSIDE RECORDS SUMMARY | 2025-04-28 09:52 | XMS_ITS | Encounter Summary ---
Author Organization [employer] Address [address] [facility] 7t [place] [address] Care Team Providers Care Bat Carrier Name Role Phone Hollie Garcia MD Primary Care Provide r Reason for Referral * Consultation (Routine) - Authorized Specialty Diagnoses / Procedures Referred By Mame nagel Referred To Contact Pharmacy Diagnoses Hypertension Cait Sunshine MD [address] [place] [address] Phone: tel: fax: Referral ID Status Reason Start Date Expiration Date Visits Requested Visits Authorized [id number] Authorized Continuity of Care 10/27/2024 10/27/2025 6 6 Encounter Details Date Type Department Care Team ([facility] Contact Info) Description 10/26/2024 Orders Only [facility] 230 [place], [place] [phone] Cait Sunshine MD [address] [place], [place] [phone] Hypertension (Primary Dx) Social History Tobacco Use [...] Info) Description 06/08/2025 1:45 PM EST Telemedicine [facility] 230 [place] [address] Hollie Garcia MD 230 [place] [address] 07/12/2025 1:00 PM EST Office Visit [facility] OPTOMETRY [address] [place] [address] Tarka, Aiyana, OD 267 [place] [address] 09/23/2025 2:15 PM EDT Office Visit [facility] ADULT DENTAL 230 [place] [address] Dolly Roman [address] [place] [address] Scheduled Referrals Name Type Priority Associated Diagnoses Orde r Schedule Referral to Pharmacy MTM Outpatient Referral Routine Hypertension Ordered: 10/27/2024 documented as of this encounter Visit Diagnoses Diagnosis Hypertension- Primary Unspecified essential hypertension documented in this encounter Additional Health Concerns Assessment Noted Time PHQ-9 Depression Total Score: 4 06/30/19 10:09 AM EST documented as of this encounter Care Teams Bat Carrier Relationship Specialty Start Date End Date Hollie Garcia MD 230 [place] [address] PCP - General Internal Medicine 03/17/25 documented as of this encounter
--- OUTSIDE RECORDS SUMMARY | 2025-04-28 09:52 | XMS_ITS | Encounter Summary ---
Author Organization [employer] Address [address] [facility] 7t [place] [address] Care Team Providers Care Can Solderer Name Role Phone Hollie Garcia MD Primary Care Provide r Encounter Details Date Type Department Care Team (Late st Contact Info) Description 10/07/2024 Telephone [facility] MEDICINE [address] [place], [place] [phone] Rosetta Peralta MD [address] [place] [address] Social History Tobacco Use Types Packs/Day Years [...] Info) Description 06/08/2025 1:45 PM EST Telemedicine [facility] MEDICINE 230 [place], [place] [phone] Hollie Garcia MD 230 [place] [address] 07/12/2025 1:00 PM EST Office Visit [facility] OPTOMETRY [address] [place], [place] [phone] Aiyana Horan, OD 267 [place], [place] [phone] 09/23/2025 2:15 PM EDT Office Visit [facility] ADULT DENTAL [address] [place] [address] Dolly Roman 230 [place] [address] documented as of this encounter Visit Diagnoses Not on filedocumented in this encounter Additional Health Concerns Assessment Noted Time PHQ-9 Depression Total Score: 4 06/30/19 25 10:09 AM EST documented as of this encounter Care Teams Can Solderer Relationship Specialty Start Date End Date Hollie Garcia MD 230 [place] [address] PCP - General Internal Medicine 03/17/25 documented as of this encounter
--- OUTSIDE RECORDS SUMMARY | 2025-04-28 09:52 | XMS_ITS | Encounter Summary ---
Author Organization [employer] Address [address] [facility] [address] 7t [place] [address] Care Team Providers Care Transportation Design Engineer Name Role Phone Hollie Garcia MD Primary Care Provide r Reason for Visit * Reason Onset Date Comments PT-1 01/06/2025 Encounter Details Date Type Department Care Team ([facility] Contact Info) Description 01/06/2025 Telephone [facility] MEDICINE 230 [place], [place] [phone] Rosetta Peralta MD 230 [place], [place] [phone] PT-1 Social History Tobacco Use Types Packs/Day [...] Y/N: Yes Provider name or facility name: [facility] - Cardiology Facility Address: [address] [place] [address] Dr 3[address] Floor, [place] [address] Escort needed: Y/N: No Do you have a wheelchair: Y/N: No If yes- Manual or electric: N/A Visits: once a month documented in this encounter Plan of Treatment Upcoming Encounters Date Type Department Care Team (Late st Contact Info) Description 06/08/2025 1:45 PM EST Telemedicine [facility] MEDICINE 230 [place] [address] Hollie Garcia MD 230 [place] [address] 07/12/2025 1:00 PM EST Office Visit [facility] OPTOMETRY 267 [place] [address] TarAiyana heart, OD 267 [place] [address] 09/23/2025 2:15 PM EDT Office Visit [facility] ADULT DENTAL [address] [place] [address] JessieDolly soriano [address] [place] [address] documented as of this encounter Visit Diagnoses Not on filedocumented in this encounter Additional Health Concerns Assessment Noted Time PHQ-9 Depression Total Score: 4 06/30/19 10:09 AM EST documented as of this encounter Care Teams Transportation Design Engineer Relationship Specialty Start Date End Date Hollie Garcia MD [address] [place] [address] PCP - General Internal Medicine 03/17/25 documented as of this encounter
--- OUTSIDE RECORDS SUMMARY | 2025-04-28 09:52 | XMS_ITS | Encounter Summary ---
Author Organization [employer] Address [address] [facility] [address] 7t [place] [address] Care Team Providers Care Supervisory Historian Name Role Phone Hollie Garcia MD Primary Care Provide r Encounter Details Date Type Department Care Team ([facility] Contact Info) Description 01/12/2025 Telephone C OPTOMETRY [address] [place], [place] [phone] Aiyana Horan, OD [address] [place] [address] Social History Tobacco Use Types Packs/Day Years [...] Info) Description 06/08/2025 1:45 PM EST Telemedicine [facility] MEDICINE 230 [place], [place] [phone] Hollie Garcia MD 230 [place] [address] 07/12/2025 1:00 PM EST Office Visit [facility] OPTOMETRY [address] [place], [place] [phone] Aiyana Horan, OD [address] [place], [place] [phone] 09/23/2025 2:15 PM EDT Office Visit [facility] ADULT DENTAL 230 [place] [address] Dolly Roman [address] [place] [address] documented as of this encounter Visit Diagnoses Not on filedocumented in this encounter Additional Health Concerns Assessment Noted Time PHQ-9 Depression Total Score: 4 06/30/19 25 10:09 AM EST documented as of this encounter Care Teams Supervisory Historian Relationship Specialty Start Date End Date Hollie Garcia MD 230 [place] [address] PCP - General Internal Medicine 03/17/25 documented as of this encounter
--- OUTSIDE RECORDS SUMMARY | 2025-04-28 09:52 | XMS_ITS | Encounter Summary ---
Author Organization [email or web address] Address [address] [facility] [address] 7[address] [place] [address] Care Team Providers Care Reimbursement Spec Name Role Phone Hollie Garcia MD Primary Care Provide r Encounter Details Date Type Department Care Team (Late st Contact Info) Description 12/04/[address] [facility] MEDICINE 230 [place], [place] [phone] Rosetta Peralta MD 230 [place] [address] Varicose veins of both lower extremities with [...] the past 12 months, has t he [employer], gas, oil or water company threatened to [...] Info) Description 06/08/2025 1:[address] [facility] MEDICINE [address] [place], [place] [phone] Hollie Garcia MD [address] [place] [address] 07/12/2025 1:00 PM EST Office Visit [facility] OPTOMETRY [address] [place], [place] [phone] Aiyana Horan, OD [address] [place] [address] 09/23/2025 2:15 PM EDT Office Visit [facility] ADULT DENTAL [address] [place] [address] Dolly Roman [address] [place] [address] documented as of this encounter Procedures Procedure Name Priority Date/Time Associated Diagnosis Comments [facility] US LOWER EXTREMITY VENOUS INSUFFICIENCY BILATERAL Urgent 01/07/2025 8:46 AM EDT documented in this encounter Results * [facility] US Lower Extremity Venous Insufficiency Bilateral (01/07/2025 8:46 AM EDT) 01/07/2025 8:46 AM EDT Narrative [facility] IMAGING - 01/07/2025 10:08 AM EDT [facility] [address] [place] [address] Ultrasound Report Signed Patient: Dolly Sanchez MR#: [id number] 69 : 1955 Acct:[id number] Age/Sex: 69 / F ADM Date: 01/07/25 Loc: HO.US Attending Dr: Rosetta Peralta MD Ordering Physician: Rosetta Peralta Date of Service: 01/07/25 Procedure(s): US venous insuf bilat Accession Number(s): [id number] cc: Rosetta Peralta EXAMINATION: US LOWER EXTREMITY [...] 01/07/25 1005 DD/ 0846 TD/TT: 01/07/25 0936 Behavioral Health Assistant: Procedure Note Donotuseinterpreter, Image - 01/07/[address] [address] Ultrasound Report Signed Patient: Dolly Sanchez MMR#: [id number] 71 : 1955cct:[id number] Age/Sex: 69 / FADM Date: 01/07/25 Loc: [facility] Attending Dr: Rosetta Peralta MD Ordering Physician: Rosetta Peralta Date of Service: 01/07/25 Procedure(s): US venous insuf bilat Accession Number(s): [id number] cc: Rosetta Peralta EXAMINATION: US LOWER EXTREMITY [...] 01/07/25 1005 DD/ 0846 TD/TT: 01/07/25 0936 Behavioral Health Assistant: us Rosetta Peralta MD CV VASCULAR PROCEDURES Edited Result - Final [facility] [address] [place] [address] [phone] documented in this encounter Visit Diagnoses Diagnosis Varicose veins of both lower extremities with inflammation- Primary Swelling of both lower extremities documented in this encounter Additional Health Concerns Assessment Noted Time PHQ-9 Depression Total Score: 4 06/30/19 10:09 AM EST documented as of this encounter Care Teams Reimbursement Spec Relationship Specialty Start Date End Date Hollie Garcia MD 230 [place] [address] PCP - General Internal Medicine 03/17/25 documented as of this encounter
[2025-04-28 11:59] LABS: MANUAL DIFF FLAG NO
[2025-04-28 12:11] LABS: Hematocrit 45.9 % (37.0-47.0); Hemoglobin 15.2 g/dl (12.0-16.0); Imm Gran Abs Auto 0.02 X10*3/uL (0.00-0.03); Imm Gran Pct Auto 0.3 % (0.0-0.4); Lymphocytes Absolute Auto 1.6 X10*3/uL (1.2-4.9); Mean Corpuscular HGB Conc 33.1 g/dl (31.0-35.0); Mean Corpuscular Hemoglobin 30.6 pg (27.0-33.0); Mean Corpuscular Volume 92.5 fL (80.0-98.0); NRBC Abs Auto 0.000 X10*3/uL (0.0-0.012); NRBC Pct Auto 0.0 /100WBC (0.0-0.2); Platelet Count 267 X10*3/uL (160-400); Red Blood Count 4.96 X10*6/uL (4.20-5.50); White Blood Count 5.9 X10*3/uL (4.8-10.8)
[2025-04-28 12:45] LABS: Alanine Aminotransferase 23 U/L (0-31); Albumin Level 4.5 g/dL (3.5-5.0); Alkaline Phosphatase 94 U/L (39-117); Anion Gap 11 (12-20); Aspartate Amino Transferase 34 U/L (5-31); Blood Urea Nitrogen 19 mg/dL (9-16); Calcium 9.5 mg/dL (8.4-10.2); Carbon Dioxide 27 mmol/L (22-29); Chloride 107 mmol/L (96-108); Cholesterol 154 mg/dL (<200); Estimated Glomerular Filt Rate > 60; HDL Cholesterol 62 mg/dL (>40); Potassium 4.9 mmol/L (3.3-5.1); Sodium 140 mmol/L (135-145); Total Protein 7.2 g/dL (6.5-8.0); Triglycerides 187 mg/dL (<150)
[2025-04-28 12:56] LABS: ~HepC Num1 0.08 S/CO (0.00-0.79); ~Hepatitis C Antibody Nonreactive (Nonreactive)
== END 2025-04-28 09:06 | disposition home or self-care (01) ==
LOC: HO.HHCL 09:05
PROVIDERS: General Practice; PCP Internal Medicine; Visit Provider Internal Medicine
DX: Z13.1 Encounter for screening for diabetes mellitus (principal); Z11.59 Encounter for screening for other viral diseases; M81.0 Age-related osteoporosis without current pathological fracture; E78.2 Mixed hyperlipidemia; E66.3 Overweight; R79.9 Abnormal finding of blood chemistry, unspecified
CPT/HCPCS: 36415; 80053; 80061; 82306; 83036; 84443; 85025; 86803

== ENCOUNTER 2025-06-14 14:50 | Outpatient (REF) | payer MEDICARE, MEDICAID, SELFPAY ==
[2025-06-14 16:24] LABS: Appearance Urine Clear; Glucose Urine UA Negative (Negative); PH 5.5 (5.0-9.0); Specific Gravity - Urine 1.020 (1.005-1.025); UMIC TRIGGER UACC YES
[2025-06-14 17:02] LABS: UACC Culture Trigger YES
--- OUTSIDE RECORDS SUMMARY | 2025-06-14 17:12 | XMS_ITS | Encounter Summary ---
Author Organization [employer] Address [address] [place] [address] Care Team Providers Care Neurodiagnostic Technologist Name Role Phone Hollie Garcia MD Primary Care Provide r Reason for Visit * Reason Onset Date Comments PT-1 01/06/2025 Encounter Details Date Type Department Care Team ([facility] Contact Info) Description 01/06/2025 Telephone [facility] [address] [place], [place] [phone] Rosetta Peralta MD [address] [place], [place] [phone] PT-1 Social History Tobacco Use Types Packs/Day [...] is your housing situation today? I have regaan gaines 06/30/[address] you [...] Y/N: Yes Provider name or facility name: [facility] Facility Address: [address] [place] [address] Dr [address] Floor, [place] [address] Escort needed: Y/N: No Do you have a wheelchair: Y/N: No If yes- Manual or electric: N/A Visits: once a month documented in this encounter Plan of Treatment Upcoming Encounters Date Type Department Care Team (Late st Contact Info) Description 07/12/2025 1:00 PM EST Office Visit [facility] OPTOMETRY [address] [place], [place] [phone] Aiyana Horan, OD [address] [place] [address] 09/23/2025 2:15 PM EDT Office Visit [facility] ADULT DENTAL [address] [place] [address] Jessie, Dolly [address] [place] [address] documented as of this encounter Visit Diagnoses Not on filedocumented in this encounter Additional Health Concerns Assessment Noted Time PHQ-9 Depression Total Score: 4 06/30/19 10:09 AM EST documented as of this encounter Care Teams Neurodiagnostic Technologist Relationship Specialty Start Date End Date Hollie Garcia MD [address] [place] [address] PCP - General Internal Medicine 03/17/25 documented as of this encounter
--- OUTSIDE RECORDS SUMMARY | 2025-06-14 17:13 | XMS_ITS | Encounter Summary ---
Author Organization [employer] Address [address] [place] [address] Care Team Providers Care Maintenance Pipefitter Name Role Phone Hollie Garcia MD Primary Care Provide r Encounter Details Date Type Department Care Team (Late st Contact Info) Description 12/04/2024 Orders Only [facility] [address] [place], [place] [phone] Rosetta Peralta MD [address] [place] [address] Varicose veins of both lower extremities with [...] the past 12 months, has t he [employer], gas, oil or water company threatened to [...] Description 07/12/2025 1:00 PM EST Office Visit [facility] OPTOMETRY [address] [place] [address] Aiyana Horan OD [address] [place] [address] 09/23/2025 2:15 PM EDT Office Visit [facility] ADULT DENTAL [address] [place] [address] Dolly Roman [address] [facility] [address] documented as of this encounter Procedures Procedure Name Priority Date/Time Associated Diagnosis Comments VASC US LOWER EXTREMITY VENOUS INSUFFICIENCY BILATERAL Urgent 01/07/2025 8:46 AM EDT documented in this encounter Results * VASC US Lower Extremity Venous Insufficiency Bilateral (01/07/2025 8:46 AM EDT) 01/07/2025 8:46 AM EDT Narrative [facility] - 01/07/2025 10:08 AM EDT [facility] [address] [place] [address] Ultrasound Report Signed Patient: Dolly Sanchez MR#: [id number] : 1955 Acct:[id number] Age/Sex: 69 / F ADM Date: 01/07/25 Loc: HO.US Attending Dr: Rosetta Peralta MD Ordering Physician: Rosetta Peralta Date of Service: 01/07/25 Procedure(s): US venous insuf bilat Accession Number(s): [id number] cc: Rosetta Peralta EXAMINATION: US LOWER EXTREMITY [...] 01/07/25 1005 DD/ 0846 TD/TT: 01/07/25 0936 Grease Maker: Procedure Note Donotuseinterpreter, Image - 01/07/2025 [place] [id number] Ultrasound Report Signed Patient: Dolly Sanchez MMR#: [id number] : 1955cct:[id number] Age/Sex: 69 / FADM Date: 01/07/25 Loc: HO.US Attending Dr: Rosetta Peralta MD Ordering Physician: Rosetta Peralta Date of Service: 01/07/25 Procedure(s): US venous insuf bilat Accession Number(s): [id number] cc: Rosetta Peralta EXAMINATION: US LOWER EXTREMITY [...] 01/07/25 1005 DD/ 0846 TD/TT: 01/07/25 0936 Grease Maker: us Rosetta Peralta MD CV VASCULAR PROCEDURES Edited Result - Final [facility] [address] [place] [phone] documented in this encounter Visit Diagnoses Diagnosis Varicose veins of both lower extremities with inflammation- Primary Swelling of both lower extremities documented in this encounter Additional Health Concerns Assessment Noted Time PHQ-9 Depression Total Score: 4 06/30/19 25 10:09 AM EST documented as of this encounter Care Teams Maintenance Pipefitter Relationship Specialty Start Date End Date Hollie Garcia MD [address] [place] [phone] PCP - General Internal Medicine 03/17/25 documented as of this encounter
--- OUTSIDE RECORDS SUMMARY | 2025-06-14 17:13 | XMS_ITS | Encounter Summary ---
Author Organization [employer] Address [address] [place] [address] Care Team Providers Care Hack Saw Operator Name Role Phone Hollie Garcia MD Primary Care Provide r Encounter Details Date Type Department Care Team (Late st Contact Info) Description 10/07/2024 Telephone [facility] MED[facility]INE [address] [place], [place] [phone] Rosetta Peralta MD [address] [place] [address] Social History Tobacco Use Types Packs/Day Years [...] Description 07/12/2025 1:00 PM EST Office Visit [facility] OPTOMETRY [address] [place] [address] Aiyana Horan, VALENTIN [address] [place] [address] 09/23/2025 2:15 PM EDT Office Visit [facility] ADULT DENTAL [address] [place] [address] Dolly Roman [address] [place] [address] documented as of this encounter Visit Diagnoses Not on filedocumented in this encounter Additional Health Concerns Assessment Noted Time PHQ-9 Depression Total Score: 4 06/30/19 10:09 AM EST documented as of this encounter Care Teams Hack Saw Operator Relationship Specialty Start Date End Date Hollie Garcia MD [address] [place] [address] PCP - General Internal Medicine 03/17/25 documented as of this encounter
--- OUTSIDE RECORDS SUMMARY | 2025-06-14 17:13 | XMS_ITS | Encounter Summary ---
Author Organization [employer] Address [address] [facility] 7t [place] [address] Care Team Providers Care Collection Systems Administrator Name Role Phone Hollie Garcia MD Primary Care Provide r Reason for Referral * Consultation (Routine) - Authorized Specialty Diagnoses / Procedures Referred By Mame nagel Referred To Contact Pharmacy Diagnoses Hypertension Cait Sunshine MD [address] [place] [address] Phone: tel: fax: Referral ID Status Reason Start Date Expiration Date Visits Requested Visits Authorized [id number] Authorized Continuity of Care 10/27/2024 10/27/2025 6 6 Encounter Details Date Type Department Care Team ([facility] Contact Info) Description 10/26/2024 Orders Only [facility] [address] [place], [place] [phone] Cait Sunshine MD [address] [place], [place] [phone] Hypertension (Primary Dx) Social History Tobacco Use [...] Description 07/12/2025 1:00 PM EST Office Visit [facility] OPTOMETRY [address] [place] [address] Aiyana Horan, OD [address] [place] [address] 09/23/2025 2:15 PM EDT Office Visit [facility] ADULT DENTAL [address] [place] [address] Jessie, Dolly [address] [place] [address] Scheduled Referrals Name Type Priority Associated Diagnoses Orde r Schedule Referral to Pharmacy MTM Outpatient Referral Routine Hypertension Ordered: 10/27/2024 documented as of this encounter Visit Diagnoses Diagnosis Hypertension- Primary Unspecified essential hypertension documented in this encounter Additional Health Concerns Assessment Noted Time PHQ-9 Depression Total Score: 4 06/30/19 25 10:09 AM EST documented as of this encounter Care Teams Collection Systems Administrator Relationship Specialty Start Date End Date Hollie Garcia MD [address] [place] [address] PCP - General Internal Medicine 03/17/25 documented as of this encounter
--- OUTSIDE RECORDS SUMMARY | 2025-06-14 17:13 | XMS_ITS | Encounter Summary ---
Author Organization [employer] Address [address] [place] [address] Care Team Providers Care Digital Retoucher Name Role Phone Hollie Garcia MD Primary Care Provide r Encounter Details Date Type Department Care Team (Late st Contact Info) Description 06/14/2025 Orders Only [facility] MED[facility] [address] [place], [place] [phone] Hollie Garcia MD [address] [place], [place] [phone] Social History Tobacco Use Types Packs/Day Years [...] Answer Date Recorded Patient Health Questionnaire-9 Score 11 05/10/2025 Patient Health Questionnaire-9 Score 11 05/10/2025 Last PHQ-9: Questionnaire Data Not on file 1 07/10/2024 Housing Stability Answer Date Recorded What is your housing situation today? I have reagan gaines 06/30/[address] you li ve. Do you have problems with any of the following? None of the above 06/30/2024 Food Insecurity Answer Date Recorded Within the past 12 months, y ou worried that your food would run out before you got money to buy more: Sometimes True 2024 Within the past 12 months,th e food you bought just didn't last and you didn't have enough money to get more: Sometimes True 06/08/2025 Transportation Answer Date Recorded In the past [...] the past 12 months, has t he [employer], gas, oil or water company threatened to shut off services in your home? I am not sure 06/08/2025 Depression Answer Date Recorded Patient Health Questionnaire-2 Score 3 05/10/2025 Internet Access Answer Date Recorded Internet Access Q1 No 06/08/2025 Internet Access Q2 I cannot afford it 06/08/2025 Comments Unknown Sex and Gender Information Value [...] 1:00 PM EST Office Visit [facility] OPTOMETRY [address] [place] [address] Aiyana Horan OD [address] [place] [address] 09/23/2025 2:15 PM EDT Office Visit [facility] ADULT DENTAL [address] [place] [address] Dolly Roman [address] [place] [address] documented as of this encounter Procedures Procedure Name Priority Date/Time Associated Diagnosis Comments URINALYSIS, COMPLETE, WITH REFLEX TO CULTURE Routine 06/14/2025 2:54 PM EST documented in this encounter Results * (ABNORMAL) Urinalysis, Complete, with Reflex to Culture (06/14/2025 2:54 PM EST) Color Urine Yellow [facility] Appearance Urine Clear [facility] PH 5.5 5.0 - 9.0 [facility] Glucose Urine UA Negative Negative mg/dL [facility] Urine Blood Trace(A) Negative [facility] Specific [place] - Urine 1.020 1.005 - 1.025 [facility] Urine Protein Negative Neg-Trace mg/dL [facility] Urine Ketones Negative Negative mg/dL [facility] Nitrite Urine Negative Negative [facility] Leukocyte Esterase Urine Moderate (2+)(A) Negative [facility] RBC Urine 0-2 0 - 2 /HPF [facility] Urine WBC >50(A) 0 - 5 /HPF [facility] Urine Squamous Epithelial Cell 0-2 0 - 2 /HPF [facility] Urine Bacteria 1+ None Seen [facility] Hyaline Casts, Urine 0-2 0 - 2 /LPF [facility] 06/14/2025 2:54 PM EST 06/14/2025 4:07 PM EST Narrative [facility] - 06/14/2025 5:04 PM EST Urine, Clean Catch us Hollie Rodriguez MD LAB URINE ORDERABLES Final Result [facility] [address] [place] [address] [phone] documented in this encounter Visit Diagnoses Not on filedocumented in this encounter Additional Health Concerns Assessment Noted Time PHQ-9 Depression Total Score: 11 05/10/ 025 11:09 AM EST documented as of this encounter Care Teams Digital Retoucher Relationship Specialty Start Date End Date Hollie Garcia MD [address] [place] [address] PCP - General Internal Medicine 03/17/25 documented as of this encounter
--- OUTSIDE RECORDS SUMMARY | 2025-06-14 17:13 | XMS_ITS | Encounter Summary ---
Author Organization [employer] Address [address] [place] [address] Care Team Providers Care New Car Salesperson Name Role Phone Hollie Garcia MD Primary Care Provide r Encounter Details Date Type Department Care Team ([facility] Contact Info) Description 01/12/2025 Telephone [facility] OPTOMETRY [address] [place], [place] [phone] Aiyana Horan, OD [address] [place] [address] Social History Tobacco Use Types Packs/Day Years [...] your housing situation today? I have reagan gainse 06/30/[address] you li [...] Description 07/12/2025 1:00 PM EST Office Visit [facility] OPTOMETRY [address] [place] [address] Aiyana Horan, VALENTIN [address] [place] [address] 09/23/2025 2:15 PM EDT Office Visit [facility] ADULT DENTAL [address] [place] [address] Dolly Roman [address] [place] [address] documented as of this encounter Visit Diagnoses Not on filedocumented in this encounter Additional Health Concerns Assessment Noted Time PHQ-9 Depression Total Score: 4 06/30/19 10:09 AM EST documented as of this encounter Care Teams New Car Salesperson Relationship Specialty Start Date End Date Hollie Garcia MD [address] [place] [address] PCP - General Internal Medicine 03/17/25 documented as of this encounter
--- OUTSIDE RECORDS SUMMARY | 2025-06-14 17:13 | XMS_ITS | Clinical Summary ---
Author Organization [facility] Address [address] [place] [address] Care Team Providers Care Tape Stringer Name Role Phone Hollie Garcia MD Primary [...] mouth Once per day. 90 tablet 3 5 12:32 PM EST 06/30/19 25 026 Active Calcium 500-2.5 MG-MCG [...] DIZZINESS FOR UP TO 10 DAYS 10/08/19 25 Active acetaminophen (Tylenol) 500 MG tablet Take 1 tablet by mouth Every 4-6 hours as needed for mild pain or headaches. Active albuterol 108 (90 Base) MCG/ACT inhalerIndications :Moderate persistent asthma with exacerbation Inhale 2 puffs every 4 (four) hours if needed for wheezing or shortness of breath. 18 g 11 12/10/19 25 Active montelukast (Singulair) 10 MG tabletIndications: Moderate persistent asthma with exacerbation Take 1 tablet (10 mg) by mouth at bedtime. 90 tablet 3 12/10/19 25 Active Spacer/Aero-Holdin g Chambers (OptiChamber Tia) misc 1 each every 4 (four) hours if needed (asthma). 1 each 12/17/19 25 Active albuterol (2.5 MG/3ML) 0.083% nebulizer solution Take 3 mL (2.5 mg) by nebulization every 6 (six) hours if needed for wheezing or shortness of breath. 75 mL 1 12/17/19 25 026 Active azithromycin (Zithromax Z-Tobi) 250 MG tablet Take 2 tablets once on day 1, then 1 tablet 1x/day for 4 days. 6 tablet 12/17/19 25 Active Nebulizer misc 1 kit Every 4-6 [...] next 30 min. 4 tablet 11 04/20/20 25 026 Active cholecalciferol (Vitamin D-3) 25 MCG (1000 UT) tabletIndications: Vitamin D deficiency Take 1 tablet (25 mcg) by mouth Once per day. 60 tablet 2 5 12:32 PM EST 06/08/20 25 Active melatonin 5 MG tabletIndications: Primary insomnia Take 1 tablet (5 mg) by mouth at bedtime. 30 tablet 2 5 12:32 PM EST 06/08/20 25 Active nitrofurantoin, macrocrystal-monoh ydrate, (Macrobid) 100 MG capsuleIndications :UTI symptoms Take 1 capsule (100 mg) by mouth 2 times daily for 7 days. 14 capsule 5 12:32 PM EST 06/08/20 25 025 Active Active Problems Problem Noted Date Diagnosed Date Primary insomnia 06/08/2025 UTI symptoms 06/08/2025 Moderate episode of recurren t major depressive disorder (CMS/HCC) 05/04/2025 Financial insecurity 05/04/2025 Varicose veins of both lower extremities with [...] History of vaginal hysterectomy 10/18/2016 Overview (06/30/2024): 2017 due to prolapse Hyperlipidemia 09/09/2016 Mild persistent asthma without complication 08/16 Assessment & Plan (07/01/2024 12:26 PM EST): On Montelukast, Dulera, and TASHI prn Varicose veins of lower extremity 09/09/2016 Overview (06/30/2024): Added automatically from request for surgery [id number] Vitamin D deficiency 09/09/2016 Overview (06/30/2024): ICD10 Fall 2017 Code Replacement 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 Date Type Department Care Team Description 06/14/2025 Orders Only [address] [phone] Hollie Garcia MD 06/08/2025 1:45 PM EST Telemedicine [address] [phone] Hollie Garcia MD Vitamin D deficiency; Primary insomnia; UTI symptoms 06/08/2025 Travel 06/07/[address] [address] Hollie Garcia MD chart prep 05/11/2025 Patient Outreach [address] [phone] Hollie Garcia MD Care Coordination (CHW outreach for SDOH housing search-LVM ) 04/21/[address] [phone] Hollie Garcia MD DME compression stockings 04/20/2025 1:15 PM EST Office Visit [address] [address] Hollie Garcia MD Mixed hyperlipidemia (Primary Dx); [...] of major depressive disorder without prior episode ([facility]) 04/20/2025 Travel 04/19/[address] [facility] [address] [place] [phone] Hollie Garcia MD Chart Prep 04/13/2025 Patient Outreach [facility] [address] [place] [address] Hollie Garcia MD Pre-visit Planning (Pre visit planning unable to LVM ) 03/24/2025 12:45 PM EDT Office Visit [facility] [address] [place] [address] Sapphire Hernandez Dental calculus (Primary Dx); Dental plaque; Encounter for dental examination; Dental caries; Bone loss of mandible 03/23/2025 Outside Procedure [facility] [address] [place] [address] Zachariah, Zeny, OD Presbyopia (Primary Dx) 03/18/2025 2:30 PM EDT Office Visit [facility] [address] [place] [address] Zachariah, Zeny, OD Hyperopia of both eyes [...] PM EST Office Visit [facility] [address] [place] [address] TarkaAiyana, OD [address] [place] [address] 09/23/2025 2:15 PM EDT Office Visit [facility] [address] [place], [place] [phone] Jessie Dolly [address] [place] [address] Health Maintenance Due Date Last Done Comments CT Colonography 1955 Colonoscopy 1955 Dental X-Ray: Bitewings 1957 FIT 1955 Sigmoidoscopy 1955 RSV Patients and Patients Aged 60 years or older (1 - Risk 50-74 years 1-dose series) 2007 FOBT 09/21/2023 09/20/2022, 09/20/2022 COVID-19 Vaccine ( season) 2025 05/24/2022, 01/08/2022, 05/08/2021, Additional history exists Colorectal Cancer Screening 09/20/2025 FIT DNA/Cologuard 09/20/2025 09/20/2022, 09/20/2022 Dental Oral Exam 09/23/2025 03/24/2025, 08/12/2024 Dental Prophylaxis 09/23/2025 03/24/2025, 08/13/2024 Depression Monitoring 11/07/2025 05/10/2025, 025 Mammogram 02/24/2026 02/25/2024, 02/15, 09/03/2022, Additional history exists Tobacco Screening 04/20/2026 04/20/2025 Diabetes: Hemoglobin A1C 04/28/2026 025, 04/28/2025, 03/21/2023, Additional history exists Alcohol/Substance Use Screening 06/08/2026 06/08/2025 SDOH Screening 06/08/2026 06/08/2025 Dental X-Ray: Full Mouth 08/13/2027 08/12/2024 Lipid Panel 04/28/2030 04/28/2025 DTaP/Tdap/Td Vaccines (4 - Td or Tdap) 12/19/2033 12/20/2023, 07/26/2017, 12/01/2012, Additional history exists Zoster Vaccines Completed 01/09/2021, 08/21/2019 Pneumococcal Vaccine: 50+ Years Completed 03/21/2023, 07/26/2017 Influenza Vaccine Completed 04/20/2025, , 05/24/2022, Additional history exists Hepatitis C Screening Completed 04/28/2025 HIB Vaccines Aged Out No longer eligi [...] TO CULTURE Routine 06/14/2025 2:54 PM EST TSH W/REFLEX TO FT4 Routine 04/28/2025 9 :09 AM EST Mixed hyperlipidemia VITAMIN D,25-OH,TOTAL,IA Routine 04/28/2025 9:09 AM EST Mixed hyperlipidemia Age-related osteoporosis without current pathological fracture HEPATITIS C AB W/REFL TO HCV RNA, QN, PCR Routine 04/28/2025 9:09 AM EST Mixed hyperlipidemia HEMOGLOBIN A1C Routine 04/28/2025 9:09 AM EST Mixed hyperlipidemia Encounter for screening for diabetes mellitus CBC WITH AUTO DIFFERENTIAL Routine 04/28/2025 9:09 AM EST Mixed hyperlipidemia HEMOGLOBIN A1C Routine 04/28/2025 9:09 AM EST Overweight Abnormal finding of blood chemistry, unspecified COMPREHENSIVE METABOLIC PANEL Routine 04/28/2025 9:09 AM EST Overweight LIPID PANEL, STANDARD Routine 04/28/2025 9:09 AM EST Overweight XR SHOULDER 2+ VIEWS RIGHT Routine 04/21/2025 [...] Relevant to Health Maintenance Results * (ABNORMAL) Urinalysis, Complete, with Reflex to Culture (06/14/2025 2:54 PM EST) Color Urine Yellow [facility] Appearance Urine Clear [facility] PH 5.5 5.0 - 9.0 [facility] Glucose Urine UA Negative Negative mg/dL [facility] Urine Blood Trace(A) Negative [facility] Specific [place] - Urine 1.020 1.005 - 1.025 [facility] Urine Protein Negative Neg-Trace mg/dL [facility] Urine Ketones Negative Negative mg/dL [facility] Nitrite Urine Negative Negative [facility] Leukocyte Esterase Urine Moderate (2+)(A) Negative [facility] RBC Urine 0-2 0 - 2 /HPF [facility] Urine WBC >50(A) 0 - 5 /HPF [facility] Urine Squamous Epithelial Cell 0-2 0 - 2 /HPF [facility] Urine Bacteria 1+ None Seen [facility] Hyaline Casts, Urine 0-2 0 - 2 /LPF [facility] 06/14/2025 2:54 PM EST 06/14/2025 4:07 PM EST Narrative [facility] - 06/14/2025 5:04 PM EST Urine, Clean Catch us Hollie Rodriguez MD LAB URINE ORDERABLES Final Result [facility] [address] [place] [address] [phone] * (ABNORMAL) Vitamin D, 25-Hydroxy, Total, Immunoassay (04/28/2025 9:09 AM EST) Vitamin D 25-OH Total 21.1(L) >30 ng/mL [facility] Comment: Health Based Reference Values*< 20 ng/mL Frdnhuwdm78-27 ng/mL Insufficient> 30 ng/mL Sufficient*Jadyn LOPEZ. N Engl J Med. 2007;357:266-280There is no well-established upper level of normal vitamin Dlevels. Some laboratories use 50 ng/mL as an upper limit ofnormal. However, toxicity is patient-dependent and may occurat any level. Careful correlation with the patient'spresentation is necessary and, if there is concern forvitamin D toxicity, treatment should be consideredirrespective of the serum level.Care must be taken in interpreting Vitamin D results fromdifferent laboratories and methodologies. Published datademonstrated that results from patients undergoinghemodialysis may show a negative bias when tested withvarious automated 25-OH vitamin D assays when compared toLC-MS/MS.When testing samples from patients whose predominant form ofVitamin D is Vitamin D2, such as patients receiving VitaminD2 supplementation, results that are subtherapeutic shouldbe confirmed with another method such as LC-MS/MS. Blood Venous blood specimen / Unknown 04/28/2025 9:09 AM EST 04/28/2025 11:49 AM EST us Hollie Rodriguez MD LAB BLOOD ORDERABLES Final Result [facility] [address] [place] [phone] * TSH with Reflex to Free T4 (04/28/2025 9:09 AM EST) TSH reflex Free T4 1.29 0.32 - 4.0 uIU/mL [facility] Blood Venous blood specimen / Unknown 04/28/2025 9:09 AM EST 04/28/2025 11:49 AM EST us Hollie Rodriguez MD LAB BLOOD ORDERABLES Final Result [facility] [address] [place], [place] [phone] * (ABNORMAL) CBC auto differential (04/28/2025 9:09 AM EST) White Blood Count 5.9 4.8 - 10.8 X10*3/uL [facility] Red Blood Count 4.96 4.20 - 5.50 X10*6/uL [facility] Hemoglobin 15.2 12.0 - 16.0 g/dl [facility] Hematocrit 45.9 37.0 - 47.0 % [facility] Mean Corpuscular Volume 92.5 80.0 - 98.0 fL [facility] Mean Corpuscular Hemoglobin 30.6 27.0 - 33.0 pg [facility] Mean Corpuscular HGB Conc 33.1 31.0 - 35.0 g/dl [facility] Red Cell Distribution Width 12.0 11.0 - 16.0 % [facility] Platelet Count 267 160 - 400 X10*3/uL [facility] Mean Platelet Volume 9.3(L) 9.4 - 12.3 fL [facility] Neutrophils Percent Auto 62.9 45 - 73 % [facility] Imm Gran Pct Auto 0.3 0.0 - 0.4 % [facility] Lymphocytes Percent Auto 27.5 20 - 40 % [facility] Monocytes Percent Auto 7.3 2 - 11 % [facility] Eosinophils Percent Auto 1.5 0 - 4 % [facility] Basophils Percent Auto 0.5 0 - 2 % [facility] NRBC Pct Auto 0.0 0.0 - 0.2 /100WBC [facility] Neutrophils Absolute Auto 3.7 2.0 - 8.3 x10*3/uL [facility] Imm Gran Abs Auto 0.02 0.00 - 0.03 X10*3/uL [facility] Lymphocytes Absolute Auto 1.6 1.2 - 4.9 X10*3/uL [facility] Monocytes Absolute Auto 0.4 0.1 - 1.2 X10*3/uL [facility] Eosinophils Absolute Auto 0.1 0.0 - 0.4 X10*3/uL [facility] Basophils Absolute Auto 0.0 0.0 - 0.2 X10*3/uL [facility] NRBC Abs Auto 0.000 0.0 - 0.012 X10*3/uL [facility] Blood Venous blood specimen / Unknown 04/28/2025 9:09 AM EST 04/28/2025 11:49 AM EST Hollie Rodriguez MD LAB BLOOD ORDERABLES Final Result Performing Organization Address City/[facility]/ZIP Co de Phone Number [facility] [address] [place] [phone] * Hepatitis C Antibody with Reflex to HCV, RNA, Quantitative, Real-Time PCR (04/28/2025 9:09 AM EST) Hepatitis C Antibody Nonreactive Nonreactive [facility] Comment:Antibodies to HCV no t detected; does not exclude early acuteHCV infection. Blood Venous blood specimen / Unknown 04/28/2025 9:09 AM EST 04/28/2025 11:49 AM EST Hollie Rodriguez MD LAB BLOOD ORDERABLES Final Result Performing Organization Address City/[facility]/ZIP Co de Phone Number [facility] [address] [place] [phone] * Hemoglobin A1c (04/28/2025 9:09 AM EST) Only the most recent of2 resultswithin the time period is included. Hemoglobin A1c 5.8 <6.0 % [facility] Comment:Hemoglobin A1C Refer ence Range Adults: 4.8 - 6.0 % Non diabetic: < 6.0 % Goal: < 7.0 %Additional Action Suggested: > 8.0 %Note: Hemoglobin A1c results are invalid for patients with abnormal amounts of HbF. Blood transfusions may impact the HbA1c concentration in the patient sample. Estimated Average Glucose 120 mg/dL [facility] Comment:eAG = Estimated ave rage glucose which is %A1C expressed asaverage glucose, using the formula of the J5C-OocasmeHqudoyz Glucose study (ADAG), Diabetes Care, Vol.31,#8,Jan. 2007 Blood Venous blood specimen / Unknown 04/28/2025 9:09 AM EST 04/28/2025 11:49 AM EST us Hollie Rodriguez MD LAB BLOOD ORDERABLES Final Result [facility] [address] [place] [phone] * (ABNORMAL) Lipid Panel, Standard (04/28/2025 9:09 AM EST) Triglycerides 187(H) <150 mg/dL [facility] Comment:Desirable Triglyceri de: less than 150 mg/dLBorderline High Triglyceride 150-199 mg/dLHigh Triglyceride: 200-499 mg/dLVery High Triglyceride: greater than or equal to 5OO mg/dL Cholesterol 154 <200 mg/dL [facility] Comment:Desirable Cholestero l: less than 200 mg/dLBorderline High Cholesterol: 200-239 mg/dLHigh Cholesterol: greater than 239 mg/dL LDL Cholesterol Calculated 55 <100 mg/dL [facility] Comment:Desirable LDL: less than 100 mg/dLNear Optimal/Above Optimal LDL: 110- 129 mg/dLBorderline High LDL: 130-159 mg/dLHigh LDL: 160-189 mg/dLVery High LDL: greater than or equal to 190 mg/dL HDL Cholesterol 62 >40 mg/dL [facility] Comment:Desirable HDL: great er than 40 mg/dL Note: This HDL assay may give artificially low results in patients with liver disease. Blood Venous blood specimen / Unknown 04/28/2025 9:09 AM EST 04/28/2025 11:49 AM EST us Rosetta Peralta MD LAB BLOOD ORDERABLES Final Res ult [facility] [address] [place] [phone] * (ABNORMAL) Comprehensive Metabolic Panel (04/28/2025 9:09 AM EST) Sodium 140 135 - 145 mmol/L [facility] Potassium 4.9 3.3 - 5.1 mmol/L [facility] Comment:Slight Hemolysis.Int erpret result with caution. Chloride 107 96 - 108 mmol/L [facility] Carbon Dioxide 27 22 - 29 mmol/L [facility] Anion Gap 11(L) 12 - 20 [facility] Urea Nitrogen (BUN) 19(H) 9 - 16 mg/dL [facility] Creatinine, Serum 0.72 0.5 - 1.4 mg/dL [facility] Estimated Glomerular Filt Rate >60 [facility] Comment:Chronic Kidney Disea se: Estimated GFR < 60 mL/min/1.16w3Pmaqcz Kidney Disease: Estimated GFR < 15 mL/min/1.73m2 Glucose 100 60 - 115 mg/dL [facility] Calcium 9.5 8.4 - 10.2 mg/dL [facility] Bilirubin, Total 0.4 0.0 - 1.0 mg/dL [facility] Aspartate Amino Transferase 34(H) 5 - 31 U/L [facility] Comment:Slight Hemolysis.Int erpret result with caution. Alanine Aminotransferase 23 0 - 31 U/L [facility] Total Protein 7.2 6.5 - 8.0 g/dL [facility] Albumin Level 4.5 3.5 - 5.0 g/dL [facility] Alkaline Phosphatase 94 39 - 117 U/L [facility] Blood Venous blood specimen / Unknown 04/28/2025 9:09 AM EST 04/28/2025 11:49 AM EST Rosetta Peralta MD LAB BLOOD ORDERABLES Final Res ult [facility] [address] [place] [phone] * XR Shoulder 2+ Views Right (04/21/2025 1:07 PM EST) Anatomical Region Laterality Modality Upper Extremities, Shoulder Right Radi ographic Imaging 04/21/2025 1:07 PM EST Narrative 04/22/2025 7:29 AM EST [address] [address] XRay Report Signed Patient: Dolly Sanchez MR#: [id number] 71 : 1955 Acct:[id number] Age/Sex: 70 / F ADM Date: 04/21/25 Loc: [facility] Attending Dr: Hollie Rodriguez MD Ordering Physician: Hollie Garcia MD Date of Service: 04/21/25 Procedure(s): XR shoulder RT min 2V Accession Number(s): [id number] cc: Hollie Garcia MD Reason for Exam: [...] 04/22/25 0726 DD/ 1307 TD/TT: 04/21/25 1312 Crayon Sorting Machine Feeder: Procedure Note Donotuseinterpreter, Image - 04/22/[address] [address] XRay Report Signed Patient: Dolly Sanchez MMR#: [id number] 71 : 1955cct:[id number] Age/Sex: 70 / FADM Date: 04/21/25 Loc: HO.XRAY Attending Dr: Hollie Rodriguez MD Ordering Physician: Hollie Garcia MD Date of Service: 04/21/25 Procedure(s): XR shoulder RT min 2V Accession Number(s): [id number] cc: Hollie Garcia MD Reason for Exam: [...] 04/22/25 0726 DD/ 1307 TD/TT: 04/21/25 1312 Crayon Sorting Machine Feeder: THALIA Hollie Rodriguez MD IMG XR PROCEDURES Fin al Result from Last 3 Months Insurance [facility] STANDARD MEDICARE DENTAL-[facility] MEDICAID STAND ADULT Care Teams Tape Stringer Relationship Specialty Start Date End Date Hollie Garcia MD [address] [place] [phone] PCP - General Internal Medicine 03/17/25
== END 2025-06-14 14:51 | disposition home or self-care (01) ==
LOC: HO.HHCL 14:50
PROVIDERS: PCP Internal Medicine; Visit Provider Internal Medicine
DX: R39.9 Unspecified symptoms and signs involving the genitourinary system (principal)
CPT/HCPCS: 81001; 87086; 87088; 87186